=== PATIENT | male | born 1965 | race Caucasian/White ===

== ENCOUNTER 2025-02-23 08:57 | Outpatient (CLI) | payer BC, SELFPAY ==
--- OUTSIDE RECORDS SUMMARY | 2025-02-23 09:03 | XMS_ITS | Referral Summary ---
Author Organization [facility] ([place], [place], [place], [place], [place]) Address [address] [place] [address] Care Team Providers Care Market Development Director Name Role Phone Sabrina Conner MD Primary Care Provider [phone] Allergies No known active allergies Medications mycophenolate (CELLCEPT) 500 mg tablet Take 1 tablet (500 mg total) by mouth daily. 03/12/2023 Active predniSONE (DELTASONE) 5 MG tablet Take 1 tablet (5 mg total) by mouth daily. 03/06/2023 Active DIRECTOR OF REHABILITATION Thyroid 30 mg tablet Take 1 tablet (30 mg total) by mouth daily. 03/12/2023 Active spironolactone (ALDACTONE) 50 MG tablet once. 01/14/2023 Active Active Problems Problem Noted Date Diagnosed Date Other cirrhosis of liver 06/18/2024 Prostate asymmetry 06/18/2024 History of splenectomy 06/18/2024 Morbid obesity 06/18/2024 Gallstones 06/18/2024 On prednisone therapy 06/18/2024 Incarcerated incisional hernia 05/13/2024 Obstructive sleep apnea syndrome 07/24/2023 Hypothyroidism 05/22/2022 08/22/2023 Autoimmune hepatitis 10/13/2015 Overview (06/18/2024): Problem Code: K75.4; Problem Code Type: ICD-10; Social History Tobacco Use Types Packs/Day Years Used Date Smoking Tobacco: Never Smokeless Tobacco: Never Tobacco Cessation:Counseling Given: Not Answered Alcohol Use Standard Drinks/Week Comments Not Currently 0 (1 standard drink = 0.6 oz pur e alcohol) 1 drink every 2-3 months [facility] Intimate Partner Violence Answer Da te Recorded Within the last year, have y ou been afraid of your partner or ex-partner? No 06/18/2024 Within the last year, have y ou been humiliated or emotionally abused in other ways by your partner or ex-partner? No Within the last year, have y ou been kicked, hit, slapped, or otherwise physically hurt by your partner or ex-partner? No 06/18/2024 Within the last year, have y ou been raped or forced to have any kind of sexual activity by your partner or ex-partner? No 06/18/2024 Utilities Answer Date Recorded In the past 12 months, has t he electric, gas, oil, or water company threatened to shut off services in your home? No 06/25/2024 Interpersonal Safety Answer Date Record ed How often does anyone, keerthi hanson family and friends, physically hurt you? Never 06/25/2024 How often does anyone, keerthi hanson family and friends, insult or talk down to you? Never 06/25/2024 How often does anyone, keerthi hanson family and friends, threaten you with harm? Never 06/25/2024 How often does anyone, keerthi hanson family and friends, scream or curse at you? Never 06/25/2024 Housing Stability Answer Date Recorded What is your living situation today? I have a [facility] place to live 06/25/[address] you li ve. Do you have problems with any of the following? None of the above 06/25/2024 Food Insecurity Answer Date Recorded Within the past 12 months, y ou worried that your food would run out before you got money to buy more. Never true 06/25/2024 Within the past 12 months, t he food you bought just didn't last and you didn't have money to get more. Never true 06/25/2024 Transportation Needs Answer Date Record ed In the past 12 months, has l ack of reliable transportation kept you from medical appointments, meetings, work or from getting things needed for daily living? No 06/25/2024 Financial Resource Strain Answer Date R ecorded How hard is it for you to pa y for the very basics like food, housing, medical care, and heating? Would you say it is: Not hard at all 06/25/2024 Employment Answer Date Recorded Do you want help finding or keeping work or a job? I do not need or want help 06/25/2024 Family and Community Support Answer [place] e Recorded If for any reason you need h elp with day-to-day activities such as bathing, preparing meals, shopping, managing finances, etc., do you get the help you need? I don't need any help 06/25/2024 Feeling Lonely or Isolated 0 06/25 Educational Attainment Answer Date John rded Do you speak a language other than Macanese at [facility]? No 06/25/2024 Do you want help with school or training? For example, starting or completing job training or getting a high school diploma, GED or equivalent. No 06/25/2024 Physical Activity Answer Date Recorded Number of minutes of exercise per week 150 06/25/2024 Self Management Answer Date Recorded Because of a physical, menta l, or emotional condition, do you have serious difficulty concentrating, remembering, or making decisions? (5 years or older) No 06/25/2024 Because of a physical, menta l, or emotional condition, do you have difficulty doing errands alone such as visiting a doctor's office or shopping? (15 years or older) No 06/25/2024 Substance Use Answer Date Recorded How many times in the past y ear have you used prescription drugs for non-medical reasons? Never 06/25/2024 How many times in the past year have you used [place] legal drugs? Never 06/25/2024 Mental Health Answer Date Recorded Calculation of above two rows 0 Sex and Gender Information Value Date Recorded Sex Assigned at Not on file Legal Sex Male 5:33 PM CDT Gender Identity Not on file Sexual Orientation Not on file Last Filed Vital Signs Vital Sign Reading Time Taken Comments Blood Pressure 126/81 06/26/2024 12:50 AM EDT Pulse 84 06/26/2024 12:50 AM EDT Temperature 36.4 C (97.6 F) 06/26/2024 12:50 AM EDT Respiratory Rate 18 06/26/2024 12:50 AM EDT Oxygen Saturation 97% 06/26/2024 12:50 AM EDT Inhaled Oxygen Concentration - - Weight 131.1 kg (289 lb) 06/25/2024 1:58 PM EDT Height 185.4 cm (6' 1 ) 06/25/2024 1:58 PM EDT Body Mass Index 38.13 06/25/2024 1:58 PM EDT Plan of Treatment Upcoming Encounters Date Type Department Care Team (Late st Contact Info) Description 03/17/2025 10:15 AM EST Office Visit [facility] [address] [place] [address] Rosalee Pugh MD [address] [place] [address] Medical Devices Implanted Type Area Head Bookkeeper Device Identifier Shelf Expiration Date Model / Serial / Lot Mesh Vntrlght Cir Echo 2 15cm [id number] - [id number] Implanted:Qty : 1 on 06/25/2024 by David Mccord MD at [facility] IMPLANTS N/A: Abdomen CR BARD:DAVOL 10/22/2025 [id number] / / [id number] Insurance BLUE CROSS/BLUE SHIELD Advance Directives For more information, please contact: [phone] * Full Code (Latest Code Status on File) Date Activated Date Inactivated Comments 06/25/2024 10:39 AM 06/26/2024 2:02 PM If no pulse: No intervention If has pulse: Use intubation, mechanical ventilation, defibrillation, ACLS medications, or cardioversion as indicated. Call ABALONE SHELLER * Full Code Date Activated Date Inactivated Comments 06/25/2024 6:58 AM 06/25/2024 10:39 AM Care Teams Market Development Director Relationship Specialty Start Date End Date Sabrina Conner MD [address] [place] [id number] PCP - General Internal Medicine 03/28/23
--- OUTSIDE RECORDS SUMMARY | 2025-02-23 09:03 | XMS_ITS | Clinical Summary ---
Author Organization [facility] ([place], [place], [place], [place], [place]) Address [address] [place] [address] Care Team Providers Care Program Admin Name Role Phone Sabrina Conner MD Primary Care Provider [phone] Allergies No known active allergies Medications mycophenolate (CELLCEPT) 500 mg tablet Take 1 tablet (500 mg total) by mouth daily. 03/12/2023 Active predniSONE (DELTASONE) 5 MG tablet Take 1 tablet (5 mg total) by mouth daily. 03/06/2023 Active DEVELOPMENT TECHNOLOGIST Thyroid 30 mg tablet Take 1 tablet [...] Problem Code: K75.4; Problem Code Type: ICD-10; Family History Medical History Relation Name Comments Seizures Brother Diabetes Father Deyvi Unremarkable Father Deyvi Heart disease Mother Relation Name Status Comments Brother Father Deyvi Mother Social History Tobacco Use Types Packs/Day Years [...] your living situation today? I have a [facility] place to live 06/25/2024 Think about [...] Isolated 0 06/25 Educational Attainment Answer Date Jhon rded Do you speak a language other than Egyptian at [facility]? No 06/25/2024 Do you want help with [...] Description 03/17/2025 10:15 AM EST Office Visit [facility] [address] [place] [address] Rosalee Pugh MD [address] [place] [address] Health Maintenance Due Date Last Done Comments CT Colonography 1967 Colonoscopy 1967 Colorectal Cancer Screening 1967 FOBT/FIT 1967 Fit-DNA (Cologuard) 1967 Sigmoidoscopy 1967 HIV Screening 1982 Hepatitis C Screening 1985 Pneumococcal 50+ years (1 of 2 - PCV) 1986 Shingles Vaccine (Zoster) (1 of 2) 1986 Lipid Panel 2002 DTAP/TDAP/TD VACCINES (2 - T d or Tdap) 08/25/2023 08/24/2013 COVID-19 VACCINE (2024-2 6 season) 2024 02/05/2021, 05/17/2020, 04/19/2020 Influenza Vaccine (#1) 2024 , 12/04/2017, 11/07/2016, Additional history exists Depression Screening (12+) 06/18/2025 06/18/2024 Tobacco Cessation Counseling and Screening (12+) 07/09/2025 07/09/2024 Medical Devices Implanted Type Area Golf Player Assistant Device Identifier Shelf Expiration Date Model / Serial / Lot Mesh Vntrlght Cir Echo 2 15cm [id number] - [id number] Implanted:Qty : 1 on 06/25/2024 by David Mccord MD at [facility] IMPLANTS N/A: Abdomen CR BARD:DAVOL 10/22/2025 [id number] / / [id number] Insurance BLUE CROSS/BLUE SHIELD Advance Directives For more information, please contact: [phone] * Full Code (Latest Code Status on File) Date Activated Date Inactivated Comments 06/25/2024 10:39 AM 06/26/2024 2:02 PM If no pulse: No intervention If has pulse: Use intubation, mechanical ventilation, defibrillation, ACLS medications, or cardioversion as indicated. Call MIXER CRANE OPERATOR * Full Code Date Activated Date Inactivated Comments 06/25/2024 6:58 AM 06/25/2024 10:39 AM Care Teams Program Admin Relationship Specialty Start Date End Date Sabrina Conner MD [address] [place] [address] PCP - General Internal Medicine 03/28/23
--- OUTSIDE RECORDS SUMMARY | 2025-02-23 09:04 | XMS_ITS | Encounter Summary ---
Author Organization Healthcare Address [address] [place] [address] Care Team Providers Care Salesforce Consultant Name Role Phone Celestine Garner MD Primary Care Provider + [phone] Encounter Details Date Type Department Care Team (Late st Contact Info) Description 01/10/2016 [facility] Encounter Historical OTTR [address] [place] [address] Provider, Barbra [address] [place] [address] Social History Tobacco Use Types Packs/Day Years Used Date Smoking Tobacco: Never Assessed Sex and Gender Information Value Date Recorded Sex Assigned at Not on file Legal Sex Male 7:45 PM EDT Gender Identity Not on file Sexual Orientation Not on file documented as of this encounter Miscellaneous Notes * Progress Notes - Barbra Don MD - 01/10/2016 7:14 AM EST Status update faxed to [facility] transplant per their request. * Progress Notes - Barbra Don MD - 10/20/2015 7:44 AM EDT Update faxed to [facility] transplant per their request. * Progress Notes - Josefa Schwartz - 10/10/2015 7:55 AM EDT contacted pt who stated he would like to place his eval on hold at this time. Pt scheduled to see new internal medicine doc, Nicolle Conner PCP. Pt stated his current MELD was 12 but still wanted to wait on eval. Pt to contact me once regarding RTC * Progress Notes - Miguel May - 08/31/2015 9:49 PM EDT Patient called to discuss Eval dates. 09/08 and 09/22 will not work. He asked that it be moved to midto late September with one Saturday then 2 weeks later second day, however he is not avail last week of September. Seemed conflicted with confirming a date and kept telling me that it was his issue bc he wasunhappy with [facility]. His children are not fully aware and he prefers to have them back in school (college and [employer]). Asked him what we could do to help him and he said it was his issue. * Progress Notes - Miguel May - 08/30/2015 8:41 PM EDT Spoke to patient regarding Eval dates of 09/08 and 09/22. He requested I email those dates to him andhe will call me and/or email response by 08/30. He verbalized understanding. * Progress Notes - Barbra Don MD - 07/13/2015 10:04 AM EDT Status update faxed to [facility] transplant per their request. * Progress Notes - Jorge Munoz - 07/04/2015 2:28 PM EDT Start evaluation for liver transplant. * Progress Notes - Emily Kevin - 06/23/2015 1:05 PM EDT Spoke to mr Parker - moved consult with MBS to 06/28 at 1pm. * Progress Notes - Emily Kevin - 06/23/2015 12:07 PM EDT Called Mr Parker to reschedule consult with MBS due to pending transplant - no answer, left voicemail message. * Progress Notes - Emily Kevin - 06/15/2015 9:06 AM EDT Mailed appointment letter [facility] priority: [phone]. * Progress Notes - Emily Kevin - 06/14/2015 3:13 PM EDT Per MBS - contact Mr Parker and schedule consult with MBS. Scheduled for 06/23 at 8:20am - consult only/no labs (he is having labs drawn for Dr Rees 06/19). * Progress Notes - Emily Kevin - 06/14/2015 10:40 AM EDT Received records from Dr José Miguel Rees - saved in [employer]. * Progress Notes - Josefa Schwatrz - 04/20/2015 10:12 AM EST spoke with pt regarding need for eval finally. Pt now seeing José Miguel Rees and wants to continue care with him. States the he is not happy with communication between Dr. Evans and transplant physicians. Pt stated he can not tolerte Imuran and Dr Evans office did blood test to prove it yet never sent info to us and we proceed with starting him on the medicine. Pt believes Imuran made him worse and therefore now that he is off Imuran that he is improving. Denied EGD with us but will pursue with Dr. Rees. I explained to pt that we did not have all the necessary information at time of his ICEbut have since seen biopsy and determined he does have cirrhosis - H/H dropping, INR elevated and bilirubin elevated -MELD 16. Pt states that is all from Imuran and is improving now that has been dc'd. Pt not interested in completing eval and will follow with [facility]. I explained that I felt comfortable he would be back to see us and he agreed that if things did not improve further he would contact me. * Progress Notes - Barbra Don MD - 04/13/2015 8:03 AM EST Received authorization for liver eval from [facility], auth [id number]. * Progress Notes - Barbra Don MD - 04/12/2015 8:54 AM EST Faxed [facility] transplant for benefits and eval approval. * Progress Notes - Josefa Schwartz - 04/05/2015 10:11 AM EST pt having difficulities with Imuran and unable to tolerate. Per AG - stop Imuran. RTC for discussion of MMF. Pt appt changed from 05/05 to 04/08 at 940. Orders updated in [facility]. Pt notified * Progress Notes - Josefa Schwartz - 03/28/2015 10:01 AM EST labs received from 03/25. AG notified * Progress Notes - Josefa Schwartz - 03/11/2015 9:50 AM EST medical records release faxed to [facility] for biopsy slides. * Progress Notes - Emily Kevin - 03/11/2015 9:50 AM EST Faxed request to [facility] ([phone] fax) attn:Frances for pathology slides. * Progress Notes - Josefa Schwartz - 03/08/2015 12:54 PM EST pt had local labs this am. Results in OTTR. AG notified documented in this encounter Plan of Treatment Not on file documented as of this encounter Procedures Procedure Name Priority Date/Time Associated Diagnosis Comments OTTR LAB RESULTS (MANUAL) Routine 06/23/2015 11:31 AM EDT OTTR LAB RESULTS (MANUAL) Routine 06/02/2015 10:39 AM EDT OTTR LAB RESULTS (MANUAL) Routine 04/08/2015 10:02 AM EST OTTR LAB RESULTS (MANUAL) Routine 03/25/2015 9:59 AM EST OTTR LAB RESULTS (MANUAL) Routine 03/08/2015 12:51 PM EST OTTR LAB RESULTS (MANUAL) Routine 02/11/2015 7:24 AM EST documented in this encounter Results * OTTR LAB RESULTS (MANUAL) (06/23/2015 11:31 AM EDT) External WBC 8.3 k/uL EXTERNAL LAB External Hemoglobin (Hgb) 15.7 gm/dL EXTERNAL LAB External Hematocrit (Hct) 45.4 % EXTERNAL LAB External Platelet Count (Plt) 84 k/uL EXTERNAL LAB External Prothrombin Time (PT) 12.7 seconds EXTERNAL LAB External INR - Internormal Ratio 1.3 EXTERNAL LAB External Glucose 128 mg/dL EXTERNAL LAB External BUN 21 mg/dL EXTERNAL LAB External Creatinine Blood 1.18 mg/dL EXTERNAL LAB External Sodium (Na) 139 mmol/L EXTERNAL LAB External Potassium (K) 5.1 mmol/L EXTERNAL LAB External Chloride (Cl) 102 mmol/L EXTERNAL LAB External Carbon Dioxide (CO2) 25 mmol/L EXTERNAL LAB External Calcium (Ca) 9.4 mg/dL EXTERNAL LAB External AST (SGOT) 34 units/L EXTERNAL LAB External ALT (SGPT) 46 units/L EXTERNAL LAB External Alkaline Phosphatase 88 U/L EXTERNAL LAB External Bilirubin Total 2.1 mg/dL EXTERNAL LAB External Total Protein 6.3 g/dL EXTERNAL LAB External Albumin 3.1 g/dL EXTERNAL LAB External Estimated GFR 70.03 EXTERNAL LAB 06/23/2015 11:3 1 AM EDT Narrative EXTERNAL LAB - 06/29/2015 11:33 AM EDT [facility] us Historical Provider LAB BLOOD ORDERABLES Final R esult EXTERNAL LAB * OTTR LAB RESULTS (MANUAL) (06/02/2015 10:39 AM EDT) External Glucose 171 mg/dL EXTERNAL LAB External BUN 21 mg/dL EXTERNAL LAB External Creatinine Blood 1.15 mg/dL EXTERNAL LAB External Sodium (Na) 140 mmol/L EXTERNAL LAB External Potassium (K) 4.7 mmol/L EXTERNAL LAB External Chloride (Cl) 107 mmol/L EXTERNAL LAB External Carbon Dioxide (CO2) 26 mmol/L EXTERNAL LAB External Calcium (Ca) 8.9 mg/dL EXTERNAL LAB External AST (SGOT) 40 units/L EXTERNAL LAB External ALT (SGPT) 63 units/L EXTERNAL LAB External Alkaline Phosphatase 106 U/L EXTERNAL LAB External Bilirubin Total 4.0 mg/dL EXTERNAL LAB External Total Protein 6.5 g/dL EXTERNAL LAB External Albumin 2.6 g/dL EXTERNAL LAB External Prothrombin Time (PT) 13.0 seconds EXTERNAL LAB External INR - Internormal Ratio 1.2 EXTERNAL LAB External Estimated GFR 72.14 EXTERNAL LAB 06/02/2015 10:3 9 AM EDT Narrative EXTERNAL LAB - 06/14/2015 10:40 AM EDT [facility] us Historical Provider LAB BLOOD ORDERABLES Final R esult EXTERNAL LAB * OTTR LAB RESULTS (MANUAL) (04/08/2015 10:02 AM EST) External Estimated GFR 116.35 EXTERNAL LAB 04/08/2015 10:0 2 AM EST Narrative EXTERNAL LAB - 04/08/2015 11:10 AM EST Automated LAB Interface us Historical Provider LAB BLOOD ORDERABLES Final R esult EXTERNAL LAB * OTTR LAB RESULTS (MANUAL) (03/25/2015 9:59 AM EST) External WBC 4.1 k/uL EXTERNAL LAB External Hemoglobin (Hgb) 13.4 gm/dL EXTERNAL LAB External Hemoglobin A1c 39.3 % EXTERNAL LAB External Hematocrit (Hct) 143 % EXTERNAL LAB External Prothrombin Time (PT) 13.3 seconds EXTERNAL LAB External INR - Internormal Ratio 1.2 EXTERNAL LAB External Glucose 212 mg/dL EXTERNAL LAB External BUN 17 mg/dL EXTERNAL LAB External Creatinine Blood 0.7 mg/dL EXTERNAL LAB External Sodium (Na) 139 mmol/L EXTERNAL LAB External Potassium (K) 4.3 mmol/L EXTERNAL LAB External Chloride (Cl) 106 mmol/L EXTERNAL LAB External Carbon Dioxide (CO2) 28 mmol/L EXTERNAL LAB External Calcium (Ca) 9.0 mg/dL EXTERNAL LAB External AST (SGOT) 41 units/L EXTERNAL LAB External ALT (SGPT) 43 units/L EXTERNAL LAB External Alkaline Phosphatase 85 U/L EXTERNAL LAB External Bilirubin Total 3.1 mg/dL EXTERNAL LAB External Total Protein 6.8 g/dL EXTERNAL LAB External Albumin 2.9 g/dL EXTERNAL LAB External Estimated GFR 127.93 EXTERNAL LAB 03/25/2015 9:59 AM EST Narrative EXTERNAL LAB - 03/28/2015 10:00 AM EST [facility] us Historical Provider LAB BLOOD ORDERABLES Final R esult EXTERNAL LAB * OTTR LAB RESULTS (MANUAL) (03/08/2015 12:51 PM EST) External WBC 12.5 k/uL EXTERNAL LAB External Hemoglobin (Hgb) 14.8 gm/dL EXTERNAL LAB External Hematocrit (Hct) 42.9 % EXTERNAL LAB External Platelet Count (Plt) 133 k/uL EXTERNAL LAB External Prothrombin Time (PT) 12.1 seconds EXTERNAL LAB External INR - Internormal Ratio 1.1 EXTERNAL LAB External Glucose 85 mg/dL EXTERNAL LAB External BUN 18 mg/dL EXTERNAL LAB External Creatinine Blood 0.8 mg/dL EXTERNAL LAB External Sodium (Na) 142 mmol/L EXTERNAL LAB External Potassium (K) 3.4 mmol/L EXTERNAL LAB External Chloride (Cl) 109 mmol/L EXTERNAL LAB External Carbon Dioxide (CO2) 25 mmol/L EXTERNAL LAB External Calcium (Ca) 9.0 mg/dL EXTERNAL LAB External AST (SGOT) 42 units/L EXTERNAL LAB External ALT (SGPT) 49 units/L EXTERNAL LAB External Alkaline Phosphatase 63 U/L EXTERNAL LAB External Bilirubin Total 2.4 mg/dL EXTERNAL LAB External Total Protein 7.1 g/dL EXTERNAL LAB External Albumin 2.9 g/dL EXTERNAL LAB External Estimated GFR 109.66 EXTERNAL LAB 03/08/2015 12:5 1 PM EST Narrative EXTERNAL LAB - 03/08/2015 12:53 PM EST [facility] Historical Provider LAB BLOOD ORDERABLES Final R esult Performing Organization Address City/[facility]/ZIP Co de Phone Number EXTERNAL LAB * OTTR LAB RESULTS (MANUAL) (02/11/2015 7:24 AM EST) External Estimated GFR 125.85 EXTERNAL LAB 02/11/2015 7:24 AM EST Narrative EXTERNAL LAB - 02/11/2015 9:35 AM EST Automated LAB Interface Historical Provider LAB BLOOD ORDERABLES Final R esult EXTERNAL LAB documented in this encounter Visit Diagnoses Not on filedocumented in this encounter Care Teams Salesforce Consultant Relationship Specialty [place] [id number] PCP - General 07/08/20 documented as of this encounter
--- OUTSIDE RECORDS SUMMARY | 2025-02-23 09:04 | XMS_ITS | Encounter Summary ---
Author Organization Healthcare Address [address] [place] [address] Care Team Providers Care Stockroom Attendant Name Role Phone Celestine Garner MD Primary Care Provider + [phone] Encounter Details Date Type Department Care Team (Late st Contact Info) Description 04/11/2015 [facility] OT[facility] Committee Historical OTTR [address] [place] [address] Amelia Garcia RN CH-TRANSPLANT ADMINISTRATION None Social History Tobacco Use Types Packs/Day Years Used Date Smoking Tobacco: Never Assessed Sex and Gender Information Value Date Recorded Sex Assigned at Not on file Legal Sex Male 7:45 PM EDT Gender Identity Not on file Sexual Orientation Not on file documented as of this encounter Miscellaneous Notes * Progress Notes - Amelia Garcia - 04/11/2015 1:55 PM EST Start standard eval. * Progress Notes - Emili Washburn - 04/08/2015 12:22 PM EST 49-year-old with AIH/cirrhosis meld 11 Patient here for follow-up. Intolerant to Imuran, persistent intractable nausea, Imuran discontinued. Has been on prednisone 15 mg a day. LFTs improved, increase in bilirubin to 4.5. Patient also reports fluid retention in lower extremities, weight up 10 pounds since the last appointment. Drop in hemoglobin and hematocrit noticed, hemoglobin 10.6 down from 15 last visit. No signs of GI bleed. Schedule EGD with Dr. Evans. Abdomineal US q 6 months, last in 11/09. Obtain report of thyroid US done locally. Start Nadolol 20 mg/day. Start Spironolactone 25 mg day. Increase prednisone to 20 mg/day. CBC, CMP, IgG [id number]. Return in 6 weeks. * Progress Notes - Emili Washburn - 03/11/2015 9:14 AM EST 49 YO with AIH MELD 11 Laboratory workup significant for positive IRWIN dilution 1:1280, positive smooth muscle antibody 1: 40, negative antimitochondrial antibody. IGG elevated at 2000. Started on AZA 100mg/day and continued on Prednisone 20 mg/day on 03/14/14 LFTs improved: AST 49 down from 102, ALT 49 down from 116, Bili 2.4 up from 1.1 Platelet count 133 down from 184 Patient with h/o splenomegaly ?underlying advanced fibrosis Liver biopsy slides requested, need report today Continue AZA Prednisone down to 15 mg/day Labs q2 weeks: CBC, CMP, IgG return in 8 weeks documented in this encounter Plan of Treatment Not on file documented as of this encounter Visit Diagnoses Not on filedocumented in this encounter Care Teams Stockroom Attendant Relationship Specialty Start [place] [id number] PCP - General 07/08/20 documented as of this encounter
--- OUTSIDE RECORDS SUMMARY | 2025-02-23 09:04 | XMS_ITS | Clinical Summary ---
Author Organization [facility] Address [address] [place] [address] Care Team Providers Care Retail Field Representative Name Role Phone Sabrina Conner MD Primary Care Provider Social History Tobacco Use Types Packs/Day Years Used Date Smoking Tobacco: Never Assessed Abuse Screen Answer Date Recorded Unsafe at Home or Work/School Not on file Feels Threatened by Someone? Not on file 10/2022 Does Anyone Keep You from Co ntacting Others or Doint Things Outside the Home? Not on file 12/03/2022 Physical Sign of Abuse Present Not on file 1 Housing Stability Answer Date Recorded Current Living Arrangements Not on file 10/2022 Potentially Unsafe Housing Conditions Not on ml e 12/03/2022 Family and Community Support Answer [place] e Recorded Help with Day-to-Day Activities Not on file 12/03/2022 Lonely or Isolated Not on file 12/03/2022 Employment Answer Date Recorded Do you want help finding or keeping work or a makayla b? Not on file 12/03/2022 Disabilities Answer Date Recorded Concentrating, Remembering, or Making Decisions Difficulty Not on file 12/03/2022 Doing Errands Independently Difficulty Not on fi le 12/03/2022 Education Answer Date Recorded Help with school or training? Not on file Preferred Language Not on file 12/03/2022 Sex and Gender Information Value Date Recorded Sex Assigned at Not on file Legal Sex Male 11:11 AM EDT Gender Identity Not on file Sexual Orientation Not on file Plan of Treatment Health Maintenance Due Date Last Done Comments ANNUAL PHYSICAL 1967 HEPATITIS C SCREENING 1967 TDAP/TD VACCINES (1 - Tdap) 1986 COLOGUARD 2012 COLON CANCER SCREENING 5 YEA R SIGMOIDOSCOPY 2012 COLONOSCOPY [address] CANCER SCREENING 2012 CT COLONOGRAPHY 2012 FECAL OCCULT BLOOD TEST 2012 FIT Testing (1 year) 2012 Pneumococcal Vaccine 50+ (1 of 1 - PCV) 2017 ZOSTER VACCINE (1 of 2) 2017 INFLUENZA VACCINE 09/25/2024 02/03/2020, , 11/07/2016, Additional history exists Insurance [place] [address] PPO Care Teams Retail Field Representative Relationship Specialty Start Date End Date Sabrina Conner MD [address] [place] [id number] PCP - General Internal Medicine 05/28/22
--- OUTSIDE RECORDS SUMMARY | 2025-02-23 09:04 | XMS_ITS | Clinical Summary ---
Author Organization [facility] Address [address] [place] [address] Care Team Providers Care Lathe Puller Name Role Phone Celestine Garner MD Primary Care Provider [phone] Social History Tobacco Use Types Packs/Day Years Used Date Smoking Tobacco: Never Assessed Sex and Gender Information Value Date Recorded Sex Assigned at Not on file Legal Sex Male 7:45 PM EDT Gender Identity Not on file Sexual Orientation Not on file Plan of Treatment Not on file Care Teams Lathe Puller Relationship Specialty [place] [id number] PCP - General 07/08/20
--- OUTSIDE RECORDS SUMMARY | 2025-02-23 09:04 | XMS_ITS | Data Portability ---
Author Organization [place] - [facility], [employer] Address [address] [facility] [address] [place] [address] Assessment No assessment recorded. Plan of Treatment Reminders Order Date Submit Date Provider Last Modified By Organization Details Last Modified Time Details Appointments Any 2025 09:30A M Sabrina Conner MD Not available Not available Not available Lab CBC w/ auto diff 2024 026 [email or web address] [facility], [address] [place] [address], [address], 08/20/2024 10:14:33 PT/PTT, plasma 2024 026 [facility], [address] [place] [address], [address], 08/20/2024 10:14:32 CMP, serum or plasma 2024 026 [email or web address] [id number] [facility], [address] [place] [address], [address], 12/09/2024 03:25:16 ammonia, QN, plasma 2024 026 [email or web address] [facility], [address] [place] [address], [address], 08/20/2024 10:14:32 TSH + free T4, serum 2024 026 [email or web address] [facility], [address] [place] [address], [address], 08/20/2024 10:14:32 CBC w/ auto diff 2023 025 DOMINIC [facility], [address], [place], [address], 08/20/2024 14:11:17 PT/PTT, plasma 2023 025 DOMINIC [facility], [address], [place], [address], 08/20/2024 14:11:18 CMP, serum or plasma 2023 025 DOMINIC [facility], [address], [place], [address], 08/20/2024 14:11:18 ammonia, QN, plasma 2023 025 DOMINIC [facility], [address], [place], [address], 08/20/2024 14:11:19 TSH + free T4, serum 2023 025 DOMINIC [facility], [address], [place], [address], 08/20/2024 14:11:16 CBC w/ auto diff 2023 024 DOMINIC [facility], [address] [place], [address], 01/28/2024 11:12:11 PT/PTT, plasma 2023 024 DOMINIC [facility], [address] [place], [address], 01/28/2024 11:12:12 CMP, serum or plasma 2023 024 DOMINIC [facility], [address], [place], [address], 01/28/2024 11:12:12 ammonia, QN, plasma 2023 024 DOMINIC [facility], [address], [place], [address], 01/28/2024 11:12:13 TSH + free T4, serum 2023 024 DOMINIC [facility], [address] [place], [address], 01/28/2024 11:12:11 CBC w/ auto diff 2022 024 [email or web address] [facility], [place], [address], 07/24/2023 09:30:54 CMP, serum or plasma 2022 024 [facility], [place], [address], 07/24/2023 09:31:03 PT/PTT, plasma 2022 024 [email or web address] [facility], [place], [address], 07/24/2023 09:31:10 ammonia, QN, plasma 2022 024 [email or web address] [facility], [place], [address], 07/24/2023 09:31:25 TSH + free T4, serum 2022 024 [email or web address] [facility], [address] [place], [address], 07/24/2023 09:31:31 CBC w/ auto diff 2022 023 DOMINIC [facility], [address] [place], [address], 12/19/2022 12:12:33 CMP, serum or plasma 2022 023 DOMINIC [facility], [address] [place], [address], 12/19/2022 12:12:34 ammonia, QN, plasma 2022 023 DOMINIC [facility], [address] [place], [address], 12/19/2022 12:12:35 PT/PTT, plasma 2022 023 DOMIINC [facility], [address] [facility], [place], [address], 12/19/2022 12:12:35 TSH + free T4, serum 2022 023 [email or web address] [facility], [address] [facility], [place], [address], 05/30/2022 10:27:48 Referral general surgeon referral - Please call the patient to schedule. 2023 024 [email or web address] David Mccord MD, [address], [facility] [address], [place], [address], 08/05/2023 11:58:40 Procedures None recorded. Surgeries None recorded. Imaging None recorded. Medication Orders Zepbound 2.5 mg/0.5 mL subcutane ous solution 2024 025 [place] [employer] [facility], [address], [place], [place], [id number], 08/20/2024 10:15:09 ACQUISITION SPECIALIST Thyroid 30 mg tablet 2022 023 [place] [facility], [address] [facility], [place], [address], 12/27/2022 08:25:03 Patient TargetsNo targets recorded. Patient Instructions Encounter Date Encounter Id Patient Instructions Last Modified By Organization Details Last Modified Time 12/25/2022 [id number] autoimmune hepatitis: care instructions Not available 12/25/2022 10:35:15 thyroidectomy: before your surgery [email or web address] Not available 12/25/2022 10:35:15 07/24/2023 [id number] autoimmune hepatitis: care instructions [email or web address] Not available 07/24/2023 15:40:55 sleep apnea: car e instructions [email or web address] Not available 07/24/2023 15:40:55 hernia: care instructions [email or web address] Not available 07/24/2023 15:40:56 thyroidectomy: before your surgery Not available 07/24/2023 15:40:55 hypothyroidism: care instructions [email or web address] Not available 07/24/2023 15:40:55 01/29/2024 [id number] influenza (flu) vaccine: care instructions Not available 01/29/2024 15:17:22 autoimmune hepatitis: care instructions [id number] Not available 01/29/2024 15:17:22 sleep apnea: car e instructions [email or web address] Not available 01/29/2024 15:17:22 thyroidectomy: before your surgery [email or web address] Not available 01/29/2024 15:17:22 hypothyroidism: care instructions [email or web address] Not available 01/29/2024 15:17:22 08/20/2024 [id number] autoimmune hepatitis: care instructions [email or web address] Not available 08/20/2024 10:14:32 When You Want to Lose Weight: Care Instructions Not available 08/20/2024 10:14:32 sleep apnea: car e instructions [email or web address] Not available 08/20/2024 10:14:32 thyroidectomy: before your surgery [email or web address] Not available 08/20/2024 10:14:32 hernia: care instructions Not available 08/20/2024 10:14:33 hypothyroidism: care instructions [email or web address] Not available 08/20/2024 10:14:32 Reason for Referral General Surgeon Referral for Ventral incisional hernia Please call the patient to schedule. Referring Physician: Sabrina Conner, Internal Medicine, Encounter Date: 07/24/2023 Results Created Date Observation Date Name Description Value Unit Range Abnormal Flag Note LastModifiedBy Organization Detail LastModifiedTime 05/19/1905/19/2022 CBC WITH DIFFE RENTI AL/PL ATELE T WBC 11.3 x10e3 /uL 3.4-10 .8 above high normal Not Available [facility] ([facility]) [address] [facility], [place], [address], 05/20/2022 06:42:38 05/19/19 23 05/19/2022 CBC WITH DIFFE RENTI AL/PL ATELE T RBC 5.54 x10e6 /uL 4.14-5 .80 Not Available [facility] ([facility]) [address] [place], [address], 05/20/2022 06:42:38 05/19/19 23 05/19/2022 CBC WITH DIFFE RENTI AL/PL ATELE T hemoglobin 16.5 g/dL 13.0-1 7.7 Not Available [facility] ([facility]) [address] [place], [address], 05/20/2022 06:42:38 05/19/1905/19/2022 CBC WITH DIFFE RENTI AL/PL ATELE T hematocrit 48.3 % 37.5-5 1.0 Not Available [facility] ([facility]) [address] [place], [address], 05/20/2022 06:42:38 05/19/19 23 05/19/2022 CBC WITH DIFFE RENTI AL/PL ATELE T MCV 87 fL 79-97 Not Available [facility] ([facility]) [address] [place], [address], 05/20/2022 06:42:38 05/19/1905/19/2022 CBC WITH DIFFE RENTI AL/PL ATELE T MCH 29.8 pg 26.6-3 3.0 Not Available [facility] ([facility]) [address] [place], [address], 05/20/2022 06:42:38 05/19/19 23 05/19/2022 CBC WITH DIFFE RENTI AL/PL ATELE T MCHC 34.2 g/dL 31.5-3 5.7 Not Available [facility] ([facility]) [address] [place], [address], 05/20/2022 06:42:38 05/19/19 23 05/19/2022 CBC WITH DIFFE RENTI AL/PL ATELE T RDW 14.4 % 11.6-1 5.4 Not Available [facility] ([facility]) [address] [place], [address], 05/20/2022 06:42:38 05/19/19 23 05/19/2022 CBC WITH DIFFE RENTI AL/PL ATELE T platelets 248 x10e3 /uL 150-45 0 Not Available [facility] ([facility]) [address] [facility], [place], [address], 05/20/2022 06:42:38 05/19/19 23 05/19/2022 CBC WITH DIFFE RENTI AL/PL ATELE T neutrophils 40 % not estab. Not Available [facility] ([facility]) [address] [place], [address], 05/20/2022 06:42:38 05/19/19 23 05/19/2022 CBC WITH DIFFE RENTI AL/PL ATELE T lymphs 48 % not estab. Not Available [facility] ([facility]) [address] [place], [address], 05/20/2022 06:42:38 05/19/19 23 05/19/2022 CBC WITH DIFFE RENTI AL/PL ATELE T monocytes 9 % not estab. Not Available [facility] ([facility]) [address] [place], [address], 05/20/2022 06:42:38 05/19/19 23 05/19/2022 CBC WITH DIFFE RENTI AL/PL ATELE T eos 2 % not estab. Not Available [facility] ([facility]) [address] [place], [address], 05/20/2022 06:42:38 05/19/19 23 05/19/2022 CBC WITH DIFFE RENTI AL/PL ATELE T basos 1 % not estab. Not Available [facility] ([facility]) [address] [place], [address], 05/20/2022 06:42:38 05/19/19 23 05/19/2022 CBC WITH DIFFE RENTI AL/PL ATELE T immature cells ACQUISITION SPECIALIST Not Available [facility] ([facility]) [address] [place], [address], 05/20/2022 06:42:38 05/19/19 23 05/19/2022 CBC WITH DIFFE RENTI AL/PL ATELE T neutrophils (absolute) 4.5 x10e3 /uL 1.4-7. 0 Not Available [facility] ([facility]) [address] [place], [address], 05/20/2022 06:42:38 05/19/19 23 05/19/2022 CBC WITH DIFFE RENTI AL/PL ATELE T lymphs (absolute) 5.5 x10e3 /uL 0.7-3. 1 above high normal Not Available [facility] ([facility]) [address] [place], [address], 05/20/2022 06:42:38 05/19/19 23 05/19/2022 CBC WITH DIFFE RENTI AL/PL ATELE T monocytes(ab solute) 1.1 x10e3 /uL 0.1-0. 9 above high normal Not Available [facility] ([facility]) [address] [place], [address], 05/20/2022 06:42:38 05/19/19 23 05/19/2022 CBC WITH DIFFE RENTI AL/PL ATELE T eos (absolute) 0.2 x10e3 /uL 0.0-0. 4 Not Available [facility] ([facility]) [address] [place], [address], 05/20/2022 06:42:38 05/19/19 23 05/19/2022 CBC WITH DIFFE RENTI AL/PL ATELE T baso (absolute) 0.1 x10e3 /uL 0.0-0. 2 Not Available [facility] ([facility]) [address] [facility], [place], [address], 05/20/2022 06:42:38 05/19/19 23 05/19/2022 CBC WITH DIFFE RENTI AL/PL ATELE T immature granulocytes 0 % not estab. Not Available [facility] ([facility]) [address] [facility], [place], [address], 05/20/2022 06:42:38 05/19/19 23 05/19/2022 CBC WITH DIFFE RENTI AL/PL ATELE T immature grans (abs) 0.0 x10e3 /uL 0.0-0. 1 Not Available [facility] ([facility]) [address] [facility], [place], [address], 05/20/2022 06:42:38 05/19/19 23 05/19/2022 CBC WITH DIFFE RENTI AL/PL ATELE T NRBC ACQUISITION SPECIALIST Not Available [facility] ([facility]) [address] [facility], [place], [address], 05/20/2022 06:42:38 05/19/19 23 05/19/2022 CBC WITH DIFFE RENTI AL/PL ATELE T hematology comments: ACQUISITION SPECIALIST Not Available [facility] ([facility]) [address] [facility], [place], [address], 05/20/2022 06:42:38 05/19/19 23 05/19/2022 COMP. METAB OLIC PANEL (14) glucose 84 mg/dL 70-99 Not Available [facility] ([facility]) [address] [place], [address], 05/20/2022 06:42:39 05/19/19 23 05/19/2022 COMP. METAB OLIC PANEL (14) BUN 18 mg/dL 6-24 Not Available [facility] ([facility]) [address] [place], [address], 05/20/2022 06:42:39 05/19/19 23 05/19/2022 COMP. METAB OLIC PANEL (14) creatinine 0.93 mg/dL 0.76-1 .27 Not Available [facility] ([facility]) [address] [facility] [place], [address], 05/20/2022 06:42:39 05/19/19 23 05/19/2022 COMP. METAB OLIC PANEL (14) eGFR 97 mL/mi n/1.7 3 >59 Not Available [facility] ([facility]) [address] [facility] [place], [address], 05/20/2022 06:42:39 05/19/19 23 05/19/2022 COMP. METAB OLIC PANEL (14) BUN/creatini ne ratio 19 9-20 Not Available [facility] ([facility]) [address] [facility], [place], [address], 05/20/2022 06:42:39 05/19/19 23 05/19/2022 COMP. METAB OLIC PANEL (14) sodium 143 mmol/ L 134-14 4 Not Available [facility] ([facility]) [address] [facility], [place], [address], 05/20/2022 06:42:39 05/19/19 23 05/19/2022 COMP. METAB OLIC PANEL (14) potassium 5.1 mmol/ L 3.5-5. 2 Not Available [facility] ([facility]) [address] [facility] [place], [address], 05/20/2022 06:42:39 05/19/19 23 05/19/2022 COMP. METAB OLIC PANEL (14) chloride 106 mmol/ L 96-106 Not Available [facility] ([facility]) [address] [place], [address], 05/20/2022 06:42:39 05/19/19 23 05/19/2022 COMP. METAB OLIC PANEL (14) carbon dioxide, total 23 mmol/ L 20-29 Not Available [facility] ([facility]) [address] [place], [address], 05/20/2022 06:42:39 05/19/19 23 05/19/2022 COMP. METAB OLIC PANEL (14) calcium 9.6 mg/dL 8.7-10 .2 Not Available [facility] ([facility]) [address] [place], [address], 05/20/2022 06:42:39 05/19/19 23 05/19/2022 COMP. METAB OLIC PANEL (14) protein, total 6.6 g/dL 6.0-8. 5 Not Available [facility] ([facility]) [address] [place], [address], 05/20/2022 06:42:39 05/19/19 23 05/19/2022 COMP. METAB OLIC PANEL (14) albumin 3.8 g/dL 3.8-4. 9 Not Available [facility] ([facility]) [address] [place], [address], 05/20/2022 06:42:39 05/19/19 23 05/19/2022 COMP. METAB OLIC PANEL (14) globulin, total 2.8 g/dL 1.5-4. 5 Not Available [facility] ([facility]) [address] [place], [address], 05/20/2022 06:42:39 05/19/19 23 05/19/2022 COMP. METAB OLIC PANEL (14) A/G ratio 1.4 1.2-2. 2 Not Available [facility] ([facility]) [address] [place], [address], 05/20/2022 06:42:39 05/19/19 23 05/19/2022 COMP. METAB OLIC PANEL (14) bilirubin, total 0.8 mg/dL 0.0-1. 2 Not Available [facility] ([facility]) [address] [place], [address], 05/20/2022 06:42:39 05/19/19 23 05/19/2022 COMP. METAB OLIC PANEL (14) alkaline phosphatase 79 IU/L 44-121 Not Available [facility] ([facility]) [address] [place], [address], 05/20/2022 06:42:39 05/19/19 23 05/19/2022 COMP. METAB OLIC PANEL (14) AST (SGOT) 29 IU/L 0-40 Not Available [facility] ([facility]) [address] [place], [address], 05/20/2022 06:42:39 05/19/19 23 05/19/2022 COMP. METAB OLIC PANEL (14) ALT (SGPT) 28 IU/L 0-44 Not Available [facility] ([facility]) [address] [place], [address], 05/20/2022 06:42:39 05/19/19 23 05/19/2022 IRON AND TIBC iron bind.cap.(TI BC) 281 ug/dL 250-45 0 Not Available [facility] ([facility]) [address] [place], [address], 05/20/2022 06:42:40 05/19/19 23 05/19/2022 IRON AND TIBC UIBC 145 ug/dL 111-34 3 Not Available [facility] ([facility]) [address] [place], [address], 05/20/2022 06:42:40 05/19/19 23 05/19/2022 IRON AND TIBC iron 136 ug/dL 38-169 Not Available [facility] ([facility]) [address] [place], [address], 05/20/2022 06:42:40 05/19/1905/19/2022 IRON AND TIBC iron saturation 48 % 15-55 Not Available [facility] ([facility]) [address] [place], [address], 05/20/2022 06:42:40 05/19/1905/19/2022 PROTH ROMBI N TIME (PT) INR 1.1 0.9-1. 2 Refer ence inter lm is for non-a ntico agula brandie patie nts. Sugge sted INR thera peuti c range for Vitam in K antag onist thera py: Stand giovanny Dose (mode rate inten sity thera peuti c range ): 2.0 - 3.0 Highe r inten sity thera peuti c range 2.5 - 3.5 Not Available [facility] ([facility]) [address] [facility], [place], [address], 05/20/2022 06:42:40 05/19/1905/19/2022 PROTH ROMBI N TIME (PT) prothrombin time 11.0 sec 9.1-12 .0 Not Available [facility] ([facility]) [address] [place], [address], 05/20/2022 06:42:40 05/19/1905/20/2022 AFP, SERUM , TUMOR MARKE R AFP, serum, tumor marker 2.7 NG/mL 0.0-8. 4 Vivian Diagn ostic s Elect vivian milum inesc ence Immun oassa y (ECLI A) Value s obtai nora with diffe rent assay metho ds or kits canno t be used inter garcia eably . Resul ts canno t be inter prete d as absol [place] evide nce of the prese nce or absen ce of chris lemus se. This test is not inter preta ble in pregn ant femal es. Not Available [facility] ([facility]) [address] [place], [address], 05/20/2022 06:42:41 05/19/1905/19/2022 TSH TSH 0.661 uIU/m L 0.450- 4.500 Not Available [facility] ([facility]) [address] [facility], [place], [address], 05/20/2022 06:42:41 05/19/1905/19/2022 PROST ATE-S PECIF IC AG prostate specific Ag 0.5 NG/mL 0.0-4. 0 Vivian ECLIA metho dolog y. Accor ding to the Ameri can [employer] g[employer] iatio n, Serum PSA shoul d decre ase and remai n at undet ectab le level s after radic al prost atect maggie. The AUA defin es bioch emica l recur rence as an initi al PSA value 0.2 ng/mL or great er follo wed by a subse quent confi rmato ry PSA value 0.2 ng/mL or great er. Value s obtai nora with diffe rent assay metho ds or kits canno t be used inter garcia xavier . Resul ts canno t be inter prete d as absol [place] evide nce of the prese nce or absen ce of [place] se. Not Available [facility] ([facility]) [address] [facility], [place], [address], 05/20/2022 06:42:41 05/19/1905/19/2022 LUIS TIN ferritin 296 NG/mL 30-400 Not Available [facility] ([facility]) [address] [facility], [place], [address], 05/20/2022 06:42:42 05/19/1905/19/2022 AHSAN IA, PLASM A ammonia, plasma 42 ug/dL 40-200 Not Available [facility] ([facility]) [address] [facility], [place], [address], 05/20/2022 06:42:42 12/19/1912/19/2022 TSH+F REE T4 TSH 0.555 uIU/m L 0.450- 4.500 Not Available [facility] ([facility]) [address] [place], [address], 12/19/2022 12:12:33 12/19/1912/19/2022 TSH+F REE T4 T4,free(dire ct) 1.29 NG/dL 0.82-1 .77 Not Available [facility] ([facility]) [address] [place], [address], 12/19/2022 12:12:33 12/19/1912/19/2022 CBC WITH DIFFE RENTI AL/PL ATELE T WBC 11.6 x10e3 /uL 3.4-10 .8 above high normal Not Available [facility] ([facility]) [address] [place], [address], 12/19/2022 12:12:33 12/19/1912/19/2022 CBC WITH DIFFE RENTI AL/PL ATELE T RBC 5.45 x10e6 /uL 4.14-5 .80 Not Available [facility] ([facility]) [address] [place], [address], 12/19/2022 12:12:33 12/19/1912/19/2022 CBC WITH DIFFE RENTI AL/PL ATELE T hemoglobin 16.4 g/dL 13.0-1 7.7 Not Available [facility] ([facility]) [address] [place], [address], 12/19/2022 12:12:33 12/19/1912/19/2022 CBC WITH DIFFE RENTI AL/PL ATELE T hematocrit 49.6 % 37.5-5 1.0 Not Available [facility] ([facility]) [address] [place], [address], 12/19/2022 12:12:33 12/19/1912/19/2022 CBC WITH DIFFE RENTI AL/PL ATELE T MCV 91 fL 79-97 Not Available [facility] ([facility]) [address] [facility], [place], [address], 12/19/2022 12:12:33 12/19/1912/19/2022 CBC WITH DIFFE RENTI AL/PL ATELE T MCH 30.1 pg 26.6-3 3.0 Not Available [facility] ([facility]) [address] [facility], [place], [address], 12/19/2022 12:12:33 12/19/1912/19/2022 CBC WITH DIFFE RENTI AL/PL ATELE T MCHC 33.1 g/dL 31.5-3 5.7 Not Available [facility] ([facility]) [address] [facility], [place], [address], 12/19/2022 12:12:33 12/19/1912/19/2022 CBC WITH DIFFE RENTI AL/PL ATELE T RDW 13.9 % 11.6-1 5.4 Not Available [facility] ([facility]) [address] [facility], [place], [address], 12/19/2022 12:12:33 12/19/1912/19/2022 CBC WITH DIFFE RENTI AL/PL ATELE T platelets 248 x10e3 /uL 150-45 0 Not Available [facility] ([facility]) [address] [facility], [place], [address], 12/19/2022 12:12:33 12/19/1912/19/2022 CBC WITH DIFFE RENTI AL/PL ATELE T neutrophils 35 % not estab. Not Available [facility] ([facility]) [address] [place], [address], 12/19/2022 12:12:33 12/19/1912/19/2022 CBC WITH DIFFE RENTI AL/PL ATELE T lymphs 54 % not estab. Not Available [facility] ([facility]) [address] [facility], [place], [address], 12/19/2022 12:12:33 12/19/1912/19/2022 CBC WITH DIFFE RENTI AL/PL ATELE T monocytes 9 % not estab. Not Available [facility] ([facility]) [address] [facility], [place], [address], 12/19/2022 12:12:33 12/19/1912/19/2022 CBC WITH DIFFE RENTI AL/PL ATELE T eos 2 % not estab. Not Available [facility] ([facility]) [address] [facility], [place], [address], 12/19/2022 12:12:33 12/19/1912/19/2022 CBC WITH DIFFE RENTI AL/PL ATELE T basos 0 % not estab. Not Available [facility] ([facility]) [address] [facility], [place], [address], 12/19/2022 12:12:33 12/19/1912/19/2022 CBC WITH DIFFE RENTI AL/PL ATELE T immature cells ACQUISITION SPECIALIST Not Available [facility] ([facility]) [address] [facility], [place], [address], 12/19/2022 12:12:33 12/19/1912/19/2022 CBC WITH DIFFE RENTI AL/PL ATELE T neutrophils (absolute) 4.1 x10e3 /uL 1.4-7. 0 Not Available [facility] ([facility]) [address] [facility], [place], [address], 12/19/2022 12:12:33 12/19/19 23 12/19/2022 CBC WITH DIFFE RENTI AL/PL ATELE T lymphs (absolute) 6.1 x10e3 /uL 0.7-3. 1 above high normal Not Available [facility] ([facility]) [address] [facility], [place], [address], 12/19/2022 12:12:33 12/19/1912/19/2022 CBC WITH DIFFE RENTI AL/PL ATELE T monocytes(ab solute) 1.1 x10e3 /uL 0.1-0. 9 above high normal Not Available [facility] ([facility]) [address] [facility], [place], [address], 12/19/2022 12:12:33 12/19/1912/19/2022 CBC WITH DIFFE RENTI AL/PL ATELE T eos (absolute) 0.2 x10e3 /uL 0.0-0. 4 Not Available [facility] ([facility]) [address] [facility], [place], [address], 12/19/2022 12:12:33 12/19/1912/19/2022 CBC WITH DIFFE RENTI AL/PL ATELE T baso (absolute) 0.1 x10e3 /uL 0.0-0. 2 Not Available [facility] ([facility]) [address] [facility], [place], [address], 12/19/2022 12:12:33 12/19/1912/19/2022 CBC WITH DIFFE RENTI AL/PL ATELE T immature granulocytes 0 % not estab. Not Available [facility] ([facility]) [address] [facility], [place], [address], 12/19/2022 12:12:33 12/19/1912/19/2022 CBC WITH DIFFE RENTI AL/PL ATELE T immature grans (abs) 0.0 x10e3 /uL 0.0-0. 1 Not Available [facility] ([facility]) [address] [facility], [place], [address], 12/19/2022 12:12:33 12/19/19 23 12/19/2022 CBC WITH DIFFE RENTI AL/PL ATELE T NRBC ACQUISITION SPECIALIST Not Available [facility] ([facility]) [address] [facility], [place], [address], 12/19/2022 12:12:33 12/19/19 23 12/19/2022 CBC WITH DIFFE RENTI AL/PL ATELE T hematology comments: ACQUISITION SPECIALIST Not Available [facility] ([facility] [address] [facility], [place], [address], 12/19/2022 12:12:33 12/19/19 23 12/19/2022 COMP. METAB OLIC PANEL (14) glucose 87 mg/dL 70-99 Not Available [facility] ([facility]) [address] [facility], [place], [address], 12/19/2022 12:12:34 12/19/19 23 12/19/2022 COMP. METAB OLIC PANEL (14) BUN 18 mg/dL 6-24 Not Available [facility] ([facility]) [address] [facility], [place], [address], 12/19/2022 12:12:34 12/19/19 23 12/19/2022 COMP. METAB OLIC PANEL (14) creatinine 0.95 mg/dL 0.76-1 .27 Not Available [facility] ([facility]) [address] [facility], [place], [address], 12/19/2022 12:12:34 12/19/19 23 12/19/2022 COMP. METAB OLIC PANEL (14) eGFR 95 mL/mi n/1.7 3 >59 Not Available [facility] ([facility]) [address] [place], [address], 12/19/2022 12:12:34 12/19/19 23 12/19/2022 COMP. METAB OLIC PANEL (14) BUN/creatini ne ratio 19 9-20 Not Available [facility] ([facility]) [address] [facility], [place], [address], 12/19/2022 12:12:34 12/19/19 23 12/19/2022 COMP. METAB OLIC PANEL (14) sodium 141 mmol/ L 134-14 4 Not Available [facility] ([facility]) [address] [facility], [place], [address], 12/19/2022 12:12:34 12/19/1912/19/2022 COMP. METAB OLIC PANEL (14) potassium 4.4 mmol/ L 3.5-5. 2 Not Available [facility] ([facility]) [address] [facility], [place], [address], 12/19/2022 12:12:34 12/19/1912/19/2022 COMP. METAB OLIC PANEL (14) chloride 106 mmol/ L 96-106 Not Available [facility] ([facility]) [address] [facility], [place], [address], 12/19/2022 12:12:34 12/19/1912/19/2022 COMP. METAB OLIC PANEL (14) carbon dioxide, total 23 mmol/ L 20-29 Not Available [facility] ([facility]) [address] [facility], [place], [address], 12/19/2022 12:12:34 12/19/1912/19/2022 COMP. METAB OLIC PANEL (14) calcium 9.6 mg/dL 8.7-10 .2 Not Available [facility] ([facility]) [address] [facility] [place], [address], 12/19/2022 12:12:34 12/19/1912/19/2022 COMP. METAB OLIC PANEL (14) protein, total 6.7 g/dL 6.0-8. 5 Not Available [facility] ([facility]) [address] [facility] [place], [address], 12/19/2022 12:12:34 12/19/19 23 12/19/2022 COMP. METAB OLIC PANEL (14) albumin 3.8 g/dL 3.8-4. 9 Not Available [facility] ([facility]) [address] [facility], [place], [address], 12/19/2022 12:12:34 12/19/19 23 12/19/2022 COMP. METAB OLIC PANEL (14) globulin, total 2.9 g/dL 1.5-4. 5 Not Available [facility] ([facility]) [address] [facility], [place], [address], 12/19/2022 12:12:34 12/19/1912/19/2022 COMP. METAB OLIC PANEL (14) A/G ratio 1.3 1.2-2. 2 Not Available [facility] ([facility]) [address] [facility], [place], [address], 12/19/2022 12:12:34 12/19/19 23 12/19/2022 COMP. METAB OLIC PANEL (14) bilirubin, total 0.9 mg/dL 0.0-1. 2 Not Available [facility] ([facility]) [address] [facility], [place], [address], 12/19/2022 12:12:34 12/19/19 23 12/19/2022 COMP. METAB OLIC PANEL (14) alkaline phosphatase 78 IU/L 44-121 Not Available [facility] ([facility]) [address] [facility], [place], [address], 12/19/2022 12:12:34 12/19/19 23 12/19/2022 COMP. METAB OLIC PANEL (14) AST (SGOT) 28 IU/L 0-40 Not Available [facility] ([facility]) [address] [place], [address], 12/19/2022 12:12:34 10/24/12/19/2022 COMP. METAB OLIC PANEL (14) ALT (SGPT) 36 IU/L 0-44 Not Available [facility] ([facility]) [address] [facility], [place], [address], 12/19/2022 12:12:34 12/19/1912/19/2022 PT AND PTT INR COMMEN T Test not perfo rmed. Speci men recei linda under fille d. Refer ence inter lm is for non-a ntico agula brandie patie nts. Sugge sted INR thera peuti c range for Vitam in K antag onist thera py: Stand giovanny Dose (mode rate inten sity thera peuti c range ): 2.0 - 3.0 Highe r inten sity thera peuti c range 2.5 - 3.5 Not Available [facility] ([facility]) [address] [facility], [place], [address], 12/19/2022 12:12:35 12/19/1912/19/2022 PT AND PTT prothrombin time TNP Test not perfo rmed Not Available [facility] ([facility]) [address] [facility], [place], [address], 12/19/2022 12:12:35 12/19/19 23 12/19/2022 PT AND PTT APTT TNP Test not perfo rmed Not Available [facility] ([facility]) [address] [place], [address], 12/19/2022 12:12:35 12/19/19 23 12/19/2022 AHSAN IA, PLASM A ammonia, plasma 79 ug/dL 40-200 Not Available [facility] ([facility]) [address] [facility], [place], [address], 12/19/2022 12:12:35 12/19/19 23 12/19/2022 SPECI MEN STATU S REPOR T specimen status report COMMEN T Test not perfo rmed. Speci men recei linda under fille d. TEST: [id number] PT and PTT Not Available [facility] ([facility]) [address] [place], [address], 12/19/2022 12:12:36 07/23/19 24 07/24/2023 TSH+F REE T4 TSH 0.237 uIU/m L 0.450- 4.500 below low normal Not Available [facility] ([facility]) [address] [place], [address], 07/24/2023 14:13:06 07/23/19 24 07/24/2023 TSH+F REE T4 T4,free(dire ct) 1.36 NG/dL 0.82-1 .77 Not Available [facility] ([facility]) [address] [facility], [place], [address], 07/24/2023 14:13:06 07/23/19 24 07/24/2023 CBC WITH DIFFE RENTI AL/PL ATELE T WBC 11.3 x10e3 /uL 3.4-10 .8 above high normal Not Available [facility] ([facility]) [address] [place], [address], 07/24/2023 14:13:07 07/23/19 24 07/24/2023 CBC WITH DIFFE RENTI AL/PL ATELE T RBC 5.37 x10e6 /uL 4.14-5 .80 Not Available [facility] ([facility]) [address] [place], [address], 07/24/2023 14:13:07 07/23/19 24 07/24/2023 CBC WITH DIFFE RENTI AL/PL ATELE T hemoglobin 15.8 g/dL 13.0-1 7.7 Not Available [facility] ([facility]) [address] [place], [address], 07/24/2023 14:13:07 07/23/19 24 07/24/2023 CBC WITH DIFFE RENTI AL/PL ATELE T hematocrit 48.4 % 37.5-5 1.0 Not Available [facility] ([facility]) [address] [facility], [place], [address], 07/24/2023 14:13:07 07/23/19 24 07/24/2023 CBC WITH DIFFE RENTI AL/PL ATELE T MCV 90 fL 79-97 Not Available [facility] ([facility]) [address] [facility], [place], [address], 07/24/2023 14:13:07 07/23/19 24 07/24/2023 CBC WITH DIFFE RENTI AL/PL ATELE T MCH 29.4 pg 26.6-3 3.0 Not Available [facility] ([facility]) [address] [facility], [place], [address], 07/24/2023 14:13:07 07/23/19 24 07/24/2023 CBC WITH DIFFE RENTI AL/PL ATELE T MCHC 32.6 g/dL 31.5-3 5.7 Not Available [facility] ([facility]) [address] [place], [address], 07/24/2023 14:13:07 07/23/19 24 07/24/2023 CBC WITH DIFFE RENTI AL/PL ATELE T RDW 14.2 % 11.6-1 5.4 Not Available [facility] ([facility]) [address] [place], [address], 07/24/2023 14:13:07 07/23/19 24 07/24/2023 CBC WITH DIFFE RENTI AL/PL ATELE T platelets 240 x10e3 /uL 150-45 0 Not Available [facility] ([facility]) [address] [place], [address], 07/24/2023 14:13:07 07/23/19 24 07/24/2023 CBC WITH DIFFE RENTI AL/PL ATELE T neutrophils 39 % not estab. Not Available [facility] ([facility]) [address] [facility], [place], [address], 07/24/2023 14:13:07 07/23/19 24 07/24/2023 CBC WITH DIFFE RENTI AL/PL ATELE T lymphs 49 % not estab. Not Available [facility] ([facility]) [address] [facility], [place], [address], 07/24/2023 14:13:07 07/23/19 24 07/24/2023 CBC WITH DIFFE RENTI AL/PL ATELE T monocytes 10 % not estab. Not Available [facility] ([facility]) [address] [facility], [place], [address], 07/24/2023 14:13:07 07/23/19 24 07/24/2023 CBC WITH DIFFE RENTI AL/PL ATELE T eos 2 % not estab. Not Available [facility] ([facility]) [address] [facility], [place], [address], 07/24/2023 14:13:07 07/23/19 24 07/24/2023 CBC WITH DIFFE RENTI AL/PL ATELE T basos 0 % not estab. Not Available [facility] ([facility]) [address] [facility], [place], [address], 07/24/2023 14:13:07 07/23/19 24 07/24/2023 CBC WITH DIFFE RENTI AL/PL ATELE T immature cells ACQUISITION SPECIALIST Not Available [facility] ([facility]) [address] [facility], [place], [address], 07/24/2023 14:13:07 07/23/19 24 07/24/2023 CBC WITH DIFFE RENTI AL/PL ATELE T neutrophils (absolute) 4.4 x10e3 /uL 1.4-7. 0 Not Available [facility] ([facility]) [address] [place], [address], 07/24/2023 14:13:07 07/23/19 24 07/24/2023 CBC WITH DIFFE RENTI AL/PL ATELE T lymphs (absolute) 5.5 x10e3 /uL 0.7-3. 1 above high normal Not Available [facility] ([facility]) [address] [facility], [place], [address], 07/24/2023 14:13:07 07/23/19 24 07/24/2023 CBC WITH DIFFE RENTI AL/PL ATELE T monocytes(ab solute) 1.2 x10e3 /uL 0.1-0. 9 above high normal Not Available [facility] ([facility]) [address] [facility], [place], [address], 07/24/2023 14:13:07 07/23/19 24 07/24/2023 CBC WITH DIFFE RENTI AL/PL ATELE T eos (absolute) 0.2 x10e3 /uL 0.0-0. 4 Not Available [facility] ([facility]) [address] [facility], [place], [address], 07/24/2023 14:13:07 07/23/19 24 07/24/2023 CBC WITH DIFFE RENTI AL/PL ATELE T baso (absolute) 0.1 x10e3 /uL 0.0-0. 2 Not Available [facility] ([facility]) [address] [facility], [place], [address], 07/24/2023 14:13:07 07/23/19 24 07/24/2023 CBC WITH DIFFE RENTI AL/PL ATELE T immature granulocytes 0 % not estab. Not Available [facility] ([facility]) [address] [facility], [place], [address], 07/24/2023 14:13:07 07/23/19 24 07/24/2023 CBC WITH DIFFE RENTI AL/PL ATELE T immature grans (abs) 0.0 x10e3 /uL 0.0-0. 1 Not Available [facility] ([facility]) [address], [place], [address], 07/24/2023 14:13:07 07/23/19 24 07/24/2023 CBC WITH DIFFE RENTI AL/PL ATELE T NRBC ACQUISITION SPECIALIST Not Available [facility] ([facility]) [address], [place], [address], 07/24/2023 14:13:07 07/23/19 24 07/24/2023 CBC WITH DIFFE RENTI AL/PL ATELE T hematology comments: ACQUISITION SPECIALIST Not Available [facility] ([facility]) [address], [place], [address], 07/24/2023 14:13:07 07/23/19 24 07/24/2023 COMP. METAB OLIC PANEL (14) glucose 91 mg/dL 70-99 Not Available [facility] ([facility]) [address], [place], [address], 07/24/2023 14:13:08 07/23/19 24 07/24/2023 COMP. METAB OLIC PANEL (14) BUN 17 mg/dL 6-24 Not Available [facility] ([facility]) [address] [place], [address], 07/24/2023 14:13:08 07/23/19 24 07/24/2023 COMP. METAB OLIC PANEL (14) creatinine 0.85 mg/dL 0.76-1 .27 Not Available [facility] ([facility]) [address] [place], [address], 07/24/2023 14:13:08 07/23/19 24 07/24/2023 COMP. METAB OLIC PANEL (14) eGFR 102 mL/mi n/1.7 3 >59 Not Available [facility] ([facility]) [address], [place], [address], 07/24/2023 14:13:08 07/23/19 24 07/24/2023 COMP. METAB OLIC PANEL (14) BUN/creatini ne ratio 14 11- Not Available [facility] ([facility]) [address] [facility], [place], [address], 07/24/2023 14:13:08 07/23/19 24 07/24/2023 COMP. METAB OLIC PANEL (14) sodium 142 mmol/ L 134-14 4 Not Available [facility] ([facility]) [address] [facility], [place], [address], 07/24/2023 14:13:08 07/23/19 24 07/24/2023 COMP. METAB OLIC PANEL (14) potassium 4.4 mmol/ L 3.5-5. 2 Not Available [facility] ([facility]) [address] [facility], [place], [address], 07/24/2023 14:13:08 07/23/19 24 07/24/2023 COMP. METAB OLIC PANEL (14) chloride 107 mmol/ L 96-106 above high normal Not Available [facility] ([facility]) [address] [facility], [place], [address], 07/24/2023 14:13:08 07/23/19 24 07/24/2023 COMP. METAB OLIC PANEL (14) carbon dioxide, total 22 mmol/ L - Not Available [facility] ([facility]) [address] [facility], [place], [address], 07/24/2023 14:13:08 07/23/19 24 07/24/2023 COMP. METAB OLIC PANEL (14) calcium 9.3 mg/dL 8.7-10 .2 Not Available [facility] ([facility]) [address] [facility], [place], [address], 07/24/2023 14:13:08 07/23/19 24 07/24/2023 COMP. METAB OLIC PANEL (14) protein, total 6.4 g/dL 6.0-8. 5 Not Available [facility] ([facility]) [address] [facility], [place], [address], 07/24/2023 14:13:08 07/23/19 24 07/24/2023 COMP. METAB OLIC PANEL (14) albumin 3.7 g/dL 3.8-4. 9 below low normal Not Available [facility] ([facility]) [address] [facility], [place], [address], 07/24/2023 14:13:08 07/23/19 24 07/24/2023 COMP. METAB OLIC PANEL (14) globulin, total 2.7 g/dL 1.5-4. 5 Not Available [facility] ([facility]) [address] [facility], [place], [address], 07/24/2023 14:13:08 07/23/19 24 07/24/2023 COMP. METAB OLIC PANEL (14) A/G ratio 1.4 1.2-2. 2 Not Available [facility] ([facility]) [address] [place], [address], 07/24/2023 14:13:08 07/23/19 24 07/24/2023 COMP. METAB OLIC PANEL (14) bilirubin, total 0.9 mg/dL 0.0-1. 2 Not Available [facility] ([facility]) [address] [facility], [place], [address], 07/24/2023 14:13:08 07/23/19 24 07/24/2023 COMP. METAB OLIC PANEL (14) alkaline phosphatase 66 IU/L 44-121 Not Available [facility] ([facility]) [address] [facility], [place], [address], 07/24/2023 14:13:08 07/23/19 24 07/24/2023 COMP. METAB OLIC PANEL (14) AST (SGOT) 21 IU/L 0-40 Not Available [facility] ([facility]) [address] [place], [address], 07/24/2023 14:13:08 07/23/19 24 07/24/2023 COMP. METAB OLIC PANEL (14) ALT (SGPT) 22 IU/L 0-44 Not Available [facility] ([facility]) [address] [facility], [place], [address], 07/24/2023 14:13:08 07/23/19 24 07/24/2023 PT AND PTT INR 1.1 0.9-1. 2 Refer ence inter lm is for non-a ntico agula brandie patie nts. Sugge sted INR thera peuti c range for Vitam in K antag onist thera py: Stand giovanny Dose (mode rate inten sity thera peuti c range ): 2.0 - 3.0 Highe r inten sity thera peuti c range 2.5 - 3.5 Not Available [facility] ([facility]) [address] [place], [address], 07/24/2023 14:13:08 07/23/19 24 07/24/2023 PT AND PTT prothrombin time 11.6 sec 9.1-12 .0 Not Available [facility] ([facility]) [address] [place], [address], 07/24/2023 14:13:08 07/23/19 24 07/24/2023 PT AND PTT APTT 28 sec 24-33 This test has not been valid ated for monit oring unfra ction ated hepar in thera py. aPTT- based thera peuti c range s for unfra ction ated hepar in thera py have not been estab roque jane For gener al guide lines on Hepar in monit oring , refer to the [facility] shelbie [facility] Servi lauren. Not Available [facility] ([facility]) [address] [place], [address], 07/24/2023 14:13:08 07/23/19 24 07/24/2023 AHSAN IA, PLASM A ammonia, plasma 66 ug/dL 40-200 Not Available [facility] ([facility]) [address] [facility], [place], [address], 07/24/2023 14:13:09 01/27/20 24 01/28/2024 TSH+F REE T4 TSH 0.412 uIU/m L 0.450- 4.500 below low normal Not Available [facility] ([facility]) [address] [place], [address], 01/28/2024 11:12:11 01/27/20 24 01/28/2024 TSH+F REE T4 T4,free(dire ct) 1.20 NG/dL 0.82-1 .77 normal Not Available [facility] ([facility]) [address] [facility], [place], [address], 01/28/2024 11:12:11 01/27/20 24 01/28/2024 CBC WITH DIFFE RENTI AL/PL ATELE T WBC 11.5 x10e3 /uL 3.4-10 .8 above high normal Eff ectiv e Decem elizabeth 2023 [place] [id number] 5 WBC will be made* * non-o rdera ble as a stand -robyn e order code. Not Available [facility] ([facility]) [address] [facility], [place], [address], 01/28/2024 11:12:11 01/27/20 24 01/28/2024 CBC WITH DIFFE RENTI AL/PL ATELE T RBC 5.77 x10e6 /uL 4.14-5 .80 normal Not Available [facility] ([facility]) [address] [place], [address], 01/28/2024 11:12:11 01/27/20 24 01/28/2024 CBC WITH DIFFE RENTI AL/PL ATELE T hemoglobin 16.6 g/dL 13.0-1 7.7 normal Not Available [facility] ([facility]) [address] [facility], [place], [address], 01/28/2024 11:12:11 01/27/20 24 01/28/2024 CBC WITH DIFFE RENTI AL/PL ATELE T hematocrit 51.6 % 37.5-5 1.0 above high normal Not Available [facility] ([facility]) [address] [facility], [place], [address], 01/28/2024 11:12:11 01/27/20 24 01/28/2024 CBC WITH DIFFE RENTI AL/PL ATELE T MCV 89 fL 79-97 normal Not Available [facility] ([facility]) [address] [facility], [place], [address], 01/28/2024 11:12:11 01/27/20 24 01/28/2024 CBC WITH DIFFE RENTI AL/PL ATELE T MCH 28.8 pg 26.6-3 3.0 normal Not Available [facility] ([facility]) [address] [place], [address], 01/28/2024 11:12:11 01/27/20 24 01/28/2024 CBC WITH DIFFE RENTI AL/PL ATELE T MCHC 32.2 g/dL 31.5-3 5.7 normal Not Available [facility] ([facility]) [address] [facility], [place], [address], 01/28/2024 11:12:11 01/27/20 24 01/28/2024 CBC WITH DIFFE RENTI AL/PL ATELE T RDW 14.2 % 11.6-1 5.4 Not Available [facility] ([facility]) [address] [place], [address], 01/28/2024 11:12:11 01/27/20 24 01/28/2024 CBC WITH DIFFE RENTI AL/PL ATELE T platelets 264 x10e3 /uL 150-45 0 normal Not Available [facility] ([facility]) [address] [facility], [place], [address], 01/28/2024 11:12:11 01/27/20 24 01/28/2024 CBC WITH DIFFE RENTI AL/PL ATELE T neutrophils 38 % not estab. normal Not Available [facility] ([facility]) [address] [facility], [place], [address], 01/28/2024 11:12:11 01/27/20 24 01/28/2024 CBC WITH DIFFE RENTI AL/PL ATELE T lymphs 50 % not estab. normal Not Available [facility] ([facility]) [address] [facility], [place], [address], 01/28/2024 11:12:11 01/27/20 24 01/28/2024 CBC WITH DIFFE RENTI AL/PL ATELE T monocytes 9 % not estab. normal Not Available [facility] ([facility]) [address] [facility], [place], [address], 01/28/2024 11:12:11 01/27/20 24 01/28/2024 CBC WITH DIFFE RENTI AL/PL ATELE T eos 2 % not estab. normal Not Available [facility] ([facility]) [address] [facility], [place], [address], 01/28/2024 11:12:11 01/27/20 24 01/28/2024 CBC WITH DIFFE RENTI AL/PL ATELE T basos 1 % not estab. normal Not Available [facility] ([facility]) [address] [facility], [place], [address], 01/28/2024 11:12:11 01/27/20 24 01/28/2024 CBC WITH DIFFE RENTI AL/PL ATELE T immature cells ACQUISITION SPECIALIST Not Available [facility] ([facility]) [address] [facility], [place], [address], 01/28/2024 11:12:11 01/27/20 24 01/28/2024 CBC WITH DIFFE RENTI AL/PL ATELE T neutrophils (absolute) 4.4 x10e3 /uL 1.4-7. 0 normal Not Available [facility] ([facility]) [address] [facility], [place], [address], 01/28/2024 11:12:11 01/27/20 24 01/28/2024 CBC WITH DIFFE RENTI AL/PL ATELE T lymphs (absolute) 5.7 x10e3 /uL 0.7-3. 1 above high normal Not Available [facility] ([facility]) [address] [facility], [place], [address], 01/28/2024 11:12:11 01/27/20 24 01/28/2024 CBC WITH DIFFE RENTI AL/PL ATELE T monocytes(ab solute) 1.0 x10e3 /uL 0.1-0. 9 above high normal Not Available [facility] ([facility]) [address] [facility], [place], [address], 01/28/2024 11:12:11 01/27/20 24 01/28/2024 CBC WITH DIFFE RENTI AL/PL ATELE T eos (absolute) 0.3 x10e3 /uL 0.0-0. 4 normal Not Available [facility] ([facility]) [address] [facility], [place], [address], 01/28/2024 11:12:11 01/27/20 24 01/28/2024 CBC WITH DIFFE RENTI AL/PL ATELE T baso (absolute) 0.1 x10e3 /uL 0.0-0. 2 normal Not Available [facility] ([facility]) [address] [facility], [place], [address], 01/28/2024 11:12:11 01/27/20 24 01/28/2024 CBC WITH DIFFE RENTI AL/PL ATELE T immature granulocytes 0 % not estab. Not Available [facility] ([facility]) [address] [facility], [place], [address], 01/28/2024 11:12:11 01/27/20 24 01/28/2024 CBC WITH DIFFE RENTI AL/PL ATELE T immature grans (abs) 0.0 x10e3 /uL 0.0-0. 1 Not Available [facility] ([facility]) [address] [facility], [place], [address], 01/28/2024 11:12:11 01/27/20 24 01/28/2024 CBC WITH DIFFE RENTI AL/PL ATELE T NRBC ACQUISITION SPECIALIST Not Available [facility] ([facility]) [address] [facility], [place], [address], 01/28/2024 11:12:11 01/27/20 24 01/28/2024 CBC WITH DIFFE RENTI AL/PL ATELE T hematology comments: ACQUISITION SPECIALIST Not Available [facility] ([facility]) [address] [facility], [place], [address], 01/28/2024 11:12:11 01/27/20 24 01/28/2024 COMP. METAB OLIC PANEL (14) glucose 91 mg/dL 70-99 normal Not Available [facility] ([facility]) [address] [facility], [place], [address], 01/28/2024 11:12:12 01/27/20 24 01/28/2024 COMP. METAB OLIC PANEL (14) BUN 18 mg/dL 6-24 normal Not Available [facility] ([facility]) [address] [facility], [place], [address], 01/28/2024 11:12:12 01/27/20 24 01/28/2024 COMP. METAB OLIC PANEL (14) creatinine 0.93 mg/dL 0.76-1 .27 normal Not Available [facility] ([facility]) [address], [place], [address], 01/28/2024 11:12:12 01/27/20 24 01/28/2024 COMP. METAB OLIC PANEL (14) eGFR 96 mL/mi n/1.7 3 >59 normal Not Available [facility] ([facility]) [address] [place], [address], 01/28/2024 11:12:12 01/27/20 24 01/28/2024 COMP. METAB OLIC PANEL (14) BUN/creatini ne ratio 19 9-20 normal Not Available [facility] ([facility]) [address] [place], [address], 01/28/2024 11:12:12 01/27/20 24 01/28/2024 COMP. METAB OLIC PANEL (14) sodium 141 mmol/ L 134-14 4 normal Not Available [facility] ([facility]) [address], [place], [address], 01/28/2024 11:12:12 01/27/20 24 01/28/2024 COMP. METAB OLIC PANEL (14) potassium 4.3 mmol/ L 3.5-5. 2 normal Not Available [facility] ([place] [facility]) [address] [place], [address], 01/28/2024 11:12:12 01/27/20 24 01/28/2024 COMP. METAB OLIC PANEL (14) chloride 107 mmol/ L 96-106 above high normal Not Available [facility] ([place] [facility]) [address] [facility] [place], [address], 01/28/2024 11:12:12 01/27/20 24 01/28/2024 COMP. METAB OLIC PANEL (14) carbon dioxide, total 21 mmol/ L 20-29 normal Not Available [facility] ([place] [facility]) [address] [facility] [place], [address], 01/28/2024 11:12:12 01/27/20 24 01/28/2024 COMP. METAB OLIC PANEL (14) calcium 9.6 mg/dL 8.7-10 .2 normal Not Available [facility] ([facility]) [address] [place], [address], 01/28/2024 11:12:12 01/27/20 24 01/28/2024 COMP. METAB OLIC PANEL (14) protein, total 6.7 g/dL 6.0-8. 5 normal Not Available [facility] ([facility]) [address] [place], [address], 01/28/2024 11:12:12 01/27/20 24 01/28/2024 COMP. METAB OLIC PANEL (14) albumin 3.9 g/dL 3.8-4. 9 normal Not Available [facility] ([facility]) [address] [place], [address], 01/28/2024 11:12:12 01/27/20 24 01/28/2024 COMP. METAB OLIC PANEL (14) globulin, total 2.8 g/dL 1.5-4. 5 Not Available [facility] ([facility]) [address] [place], [address], 01/28/2024 11:12:12 01/27/20 24 01/28/2024 COMP. METAB OLIC PANEL (14) bilirubin, total 0.9 mg/dL 0.0-1. 2 normal Not Available [facility] ([facility]) [address] [place], [address], 01/28/2024 11:12:12 01/27/20 24 01/28/2024 COMP. METAB OLIC PANEL (14) alkaline phosphatase 67 IU/L 44-121 normal Not Available [facility] ([facility]) [address] [place], [address], 01/28/2024 11:12:12 01/27/20 24 01/28/2024 COMP. METAB OLIC PANEL (14) AST (SGOT) 17 IU/L 0-40 normal Not Available [facility] ([facility]) [address] [facility], [place], [address], 01/28/2024 11:12:12 01/27/20 24 01/28/2024 COMP. METAB OLIC PANEL (14) ALT (SGPT) 15 IU/L 0-44 normal Not Available [facility] ([facility]) [address] [facility], [place], [address], 01/28/2024 11:12:12 01/27/20 24 01/28/2024 PT AND PTT INR 1.1 0.9-1. 2 Refer ence inter lm is for non-a ntico agula brandie patie nts. Sugge sted INR thera peuti c range for Vitam in K antag onist thera py: Stand giovanny Dose (mode rate inten sity thera peuti c range ): 2.0 - 3.0 Highe r inten sity thera peuti c range 2.5 - 3.5 Not Available [facility] ([facility]) [address] [facility], [place], [address], 01/28/2024 11:12:12 01/27/20 24 01/28/2024 PT AND PTT prothrombin time 11.8 sec 9.1-12 .0 normal Not Available [facility] ([facility]) [address] [facility], [place], [address], 01/28/2024 11:12:12 01/27/20 24 01/28/2024 PT AND PTT APTT 29 sec 24-33 normal This test has not been valid ated for monit oring unfra ction ated hepar in thera py. aPTT- based thera peuti c range s for unfra ction ated hepar in thera py have not been estab roque jane For gener al guide lines on Hepar in monit oring , refer to the [facility] Dire tory of Nano aguilar. Not Available [facility] ([facility]) [address] [facility], [place], [address], 01/28/2024 11:12:12 01/27/20 24 01/28/2024 AHSAN IA, PLASM A ammonia, plasma 58 ug/dL 40-200 Not Available [facility] ([facility]) [address] [facility], [place], [address], 01/28/2024 11:12:13 08/20/19 25 08/20/2024 TSH+F REE T4 TSH 0.022 uIU/m L 0.450- 4.500 below low normal Not Available [facility] ([facility]) [address] [facility], [place], [address], 08/20/2024 14:11:16 08/20/19 25 08/20/2024 TSH+F REE T4 T4,free(dire ct) 1.67 NG/dL 0.82-1 .77 normal Not Available [facility] ([facility]) [address] [facility] [place], [address], 08/20/2024 14:11:16 08/20/19 25 08/20/2024 CBC WITH DIFFE RENTI AL/PL ATELE T WBC 11.3 x10e3 /uL 3.4-10 .8 above high normal Not Available [facility] ([facility]) [address] [facility], [place], [address], 08/20/2024 14:11:17 08/20/19 25 08/20/2024 CBC WITH DIFFE RENTI AL/PL ATELE T RBC 5.71 x10e6 /uL 4.14-5 .80 normal Not Available [facility] ([facility]) [address] [facility], [place], [address], 08/20/2024 14:11:17 08/20/19 25 08/20/2024 CBC WITH DIFFE RENTI AL/PL ATELE T hemoglobin 17.3 g/dL 13.0-1 7.7 normal Not Available [facility] ([facility]) [address] [place], [address], 08/20/2024 14:11:17 08/20/1908/20/2024 CBC WITH DIFFE RENTI AL/PL ATELE T hematocrit 52.3 % 37.5-5 1.0 above high normal Not Available [facility] ([facility]) [address] [place], [address], 08/20/2024 14:11:17 08/20/1908/20/2024 CBC WITH DIFFE RENTI AL/PL ATELE T MCV 92 fL 79-97 normal Not Available [facility] ([facility]) [address] [place], [address], 08/20/2024 14:11:17 08/20/1908/20/2024 CBC WITH DIFFE RENTI AL/PL ATELE T MCH 30.3 pg 26.6-3 3.0 normal Not Available [facility] ([facility]) [address] [place], [address], 08/20/2024 14:11:17 08/20/1908/20/2024 CBC WITH DIFFE RENTI AL/PL ATELE T MCHC 33.1 g/dL 31.5-3 5.7 normal Not Available [facility] ([facility]) [address] [place], [address], 08/20/2024 14:11:17 08/20/1908/20/2024 CBC WITH DIFFE RENTI AL/PL ATELE T RDW 14.6 % 11.6-1 5.4 Not Available [facility] ([facility]) [address] [place], [address], 08/20/2024 14:11:17 08/20/1908/20/2024 CBC WITH DIFFE RENTI AL/PL ATELE T platelets 289 x10e3 /uL 150-45 0 normal Not Available [facility] ([facility]) [address] [place], [address], 08/20/2024 14:11:17 08/20/19 25 08/20/2024 CBC WITH DIFFE RENTI AL/PL ATELE T neutrophils 37 % not estab. normal Not Available [facility] ([facility]) [address] [place], [address], 08/20/2024 14:11:17 08/20/19 25 08/20/2024 CBC WITH DIFFE RENTI AL/PL ATELE T lymphs 50 % not estab. normal Not Available [facility] ([facility]) [address] [place], [address], 08/20/2024 14:11:17 08/20/19 25 08/20/2024 CBC WITH DIFFE RENTI AL/PL ATELE T monocytes 10 % not estab. normal Not Available [facility] ([facility]) [address] [place], [address], 08/20/2024 14:11:17 08/20/19 25 08/20/2024 CBC WITH DIFFE RENTI AL/PL ATELE T eos 2 % not estab. normal Not Available [facility] ([facility]) [address] [place], [address], 08/20/2024 14:11:17 08/20/19 25 08/20/2024 CBC WITH DIFFE RENTI AL/PL ATELE T basos 1 % not estab. 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 0 normal Not Available [facility] ([facility]) [address] [place], [address], 08/20/2024 14:11:17 08/20/19 25 08/20/2024 CBC WITH DIFFE RENTI AL/PL ATELE T lymphs (absolute) 5.6 x10e3 /uL 0.7-3. 1 above high normal Not Available [facility] ([facility]) [address] [place], [address], 08/20/2024 14:11:17 08/20/19 25 08/20/2024 CBC WITH DIFFE RENTI AL/PL ATELE T monocytes(ab solute) 1.2 x10e3 /uL 0.1-0. 9 above high normal Not Available [facility] ([facility]) [address] [place], [address], 08/20/2024 14:11:17 08/20/19 25 08/20/2024 CBC WITH DIFFE RENTI AL/PL ATELE T eos (absolute) 0.3 x10e3 /uL 0.0-0. 4 normal Not Available [facility] ([facility]) [address] [place], [address], 08/20/2024 14:11:17 08/20/19 25 08/20/2024 CBC WITH DIFFE RENTI AL/PL ATELE T baso (absolute) 0.1 x10e3 /uL 0.0-0. 2 normal Not Available [facility] ([facility]) [address] [place], [address], 08/20/2024 14:11:17 08/20/19 25 08/20/2024 CBC WITH DIFFE RENTI AL/PL ATELE T immature granulocytes 0 % not estab. Not Available [facility] ([facility]) [address] [facility], [place], [address], 08/20/2024 14:11:17 08/20/19 25 08/20/2024 CBC WITH DIFFE RENTI AL/PL ATELE T immature grans (abs) 0.0 x10e3 /uL 0.0-0. 1 Not Available [facility] ([facility]) [address] [facility], [place], [address], 08/20/2024 14:11:17 08/20/19 25 08/20/2024 CBC WITH DIFFE RENTI AL/PL ATELE T NRBC ACQUISITION SPECIALIST Not Available [facility] ([facility]) [address] [facility], [place], [address], 08/20/2024 14:11:17 08/20/19 25 08/20/2024 CBC WITH DIFFE RENTI AL/PL ATELE T hematology comments: ACQUISITION SPECIALIST Not Available [facility] ([facility]) [address] [facility], [place], [address], 08/20/2024 14:11:17 08/20/19 25 08/20/2024 COMP. METAB OLIC PANEL (14) glucose 87 mg/dL 70-99 normal Not Available [facility] ([facility]) [address] [facility], [place], [address], 08/20/2024 14:11:18 08/20/19 25 08/20/2024 COMP. METAB OLIC PANEL (14) BUN 21 mg/dL 6-24 normal Not Available [facility] ([facility]) [address] [facility], [place], [address], 08/20/2024 14:11:18 08/20/19 25 08/20/2024 COMP. METAB OLIC PANEL (14) creatinine 0.99 mg/dL 0.76-1 .27 normal Not Available [facility] ([facility]) [address] [facility], [place], [address], 08/20/2024 14:11:18 08/20/19 25 08/20/2024 COMP. METAB OLIC PANEL (14) eGFR 89 mL/mi n/1.7 3 >59 normal Not Available [facility] ([facility]) [address] [facility], [place], [address], 08/20/2024 14:11:18 08/20/19 25 08/20/2024 COMP. METAB OLIC PANEL (14) BUN/creatini ne ratio 21 9-20 above high normal Not Available [facility] ([facility]) [address] [facility], [place], [address], 08/20/2024 14:11:18 08/20/19 25 08/20/2024 COMP. METAB OLIC PANEL (14) sodium 141 mmol/ L 134-14 4 normal Not Available [facility] ([facility]) [address] [facility], [place], [address], 08/20/2024 14:11:18 08/20/19 25 08/20/2024 COMP. METAB OLIC PANEL (14) potassium 4.5 mmol/ L 3.5-5. 2 normal Not Available [facility] ([facility]) [address] [facility], [place], [address], 08/20/2024 14:11:18 08/20/19 25 08/20/2024 COMP. METAB OLIC PANEL (14) chloride 105 mmol/ L 96-106 normal Not Available [facility] ([facility]) [address] [facility] [place], [address], 08/20/2024 14:11:18 08/20/19 25 08/20/2024 COMP. METAB OLIC PANEL (14) carbon dioxide, total 21 mmol/ L 20-29 normal Not Available [facility] ([facility]) [address] [place], [address], 08/20/2024 14:11:18 08/20/19 25 08/20/2024 COMP. METAB OLIC PANEL (14) calcium 9.6 mg/dL 8.7-10 .2 normal Not Available [facility] ([facility]) [address] [facility] [place], [address], 08/20/2024 14:11:18 08/20/19 25 08/20/2024 COMP. METAB OLIC PANEL (14) protein, total 6.6 g/dL 6.0-8. 5 normal Not Available [facility] ([facility]) [address] [facility] [place], [address], 08/20/2024 14:11:18 08/20/19 25 08/20/2024 COMP. METAB OLIC PANEL (14) albumin 3.9 g/dL 3.8-4. 9 normal Not Available [facility] ([facility]) [address] [facility] [place], [address], 08/20/2024 14:11:18 08/20/19 25 08/20/2024 COMP. METAB OLIC PANEL (14) globulin, total 2.7 g/dL 1.5-4. 5 Not Available [facility] ([facility]) [address] [facility] [place], [address], 08/20/2024 14:11:18 08/20/19 25 08/20/2024 COMP. METAB OLIC PANEL (14) bilirubin, total 0.7 mg/dL 0.0-1. 2 normal Not Available [facility] ([facility]) [address] [facility] [place], [address], 08/20/2024 14:11:18 08/20/19 25 08/20/2024 COMP. METAB OLIC PANEL (14) alkaline phosphatase 75 IU/L 44-121 normal Not Available [facility] ([facility]) [address] [facility] [place], [address], 08/20/2024 14:11:18 08/20/19 25 08/20/2024 COMP. METAB OLIC PANEL (14) AST (SGOT) 26 IU/L 0-40 normal Not Available [facility] ([facility]) [address] [place], [address], 08/20/2024 14:11:18 08/20/19 25 08/20/2024 COMP. METAB OLIC PANEL (14) ALT (SGPT) 23 IU/L 0-44 normal Not Available [facility] ([facility]) [address] [place], [address], 08/20/2024 14:11:18 08/20/1908/20/2024 PT AND PTT INR 1.1 0.9-1. 2 Refer ence inter lm is for non-a ntico agula brandie patie nts. Sugge sted INR thera peuti c range for Vitam in K antag onist thera py: Stand giovanny Dose (mode rate inten sity thera peuti c range ): 2.0 - 3.0 Highe r inten sity thera peuti c range 2.5 - 3.5 Not Available [facility] ([facility]) [address] [place], [address], 08/20/2024 14:11:18 08/20/19 25 08/20/2024 PT AND PTT prothrombin time 12.2 sec 9.1-12 .0 above high normal Not Available [facility] ([facility]) [address] [place], [address], 08/20/2024 14:11:18 08/20/19 25 08/20/2024 PT AND PTT APTT 28 sec 24-33 normal This test has not been valid ated for monit oring unfra ction ated hepar in thera py. aPTT- based thera peuti c range s for unfra ction ated hepar in thera py have not been estab roque jane For gener al guide lines on Hepar in monit oring , refer to the [facility] Dire tory of Nano aguilar. Not Available [facility] ([facility]) [address] [facility], [place], [address], 08/20/2024 14:11:18 08/20/19 25 08/20/2024 AHSAN IA, PLASM A ammonia, plasma 77 ug/dL 40-200 Not Available [facility] ([facility]) [address] [facility], [place], [address], 08/20/2024 14:11:19 02/15/20 23 02/25/2022 pulse oxime try (PROC ) No observ ation record ed. [email or web address] [address], [place], [address], 07/24/2023 15:25:14 Result Notes None recorded. Problems Name Problem SNOMED Code Status Onset Date Resolution Date Notes Provider Name and Address Organization Details Recorded Time Autoimmu ne hepatiti s [id number] Completed 201507/30/2017 Problem Code: K75.4; Problem Code Type: ICD-10; Octavio Lewis MA [address] [facility] [address], [place], [address] , [facility] 5 09:40:09 Asthenia [id number] Completed 201507/24/2023 Problem Code: R53.1; Problem Code Type: ICD-10; Octavio Lewis MA [address], [place], [address] , [facility] 4 11:34:21 Simple goiter 103626530 Active 2015 Problem Code: 240.0; Problem Code Type: ICD-9; Not Available [facility] 3 17:37:07 Malaise and fatigue 445825330 Completed 201504/26/2022 Problem Code: 780.79; Problem Code Type: ICD-9; Jyothi Rudd MA [address] [place] [address], [place], [address] , [facility] 3 09:06:56 Diffuse goiter 385126871 Active 2015 ProblemC ode: 'E04.0'; ProblemC odeType: 'ICD-10' ; Octavio Lewis MA [address] [facility], [place], [address] , [facility] 5 09:41:17 Body mass index 30+ - obesity 909240072 Active 2015 Problem Code: Z68.36; Problem Code Type: ICD-10; Not Available [facility] 3 17:37:06 Periapic al abscess without sinus tract Completed 201501/13/2016 Problem Code: 522.5; Problem Code Type: ICD-9; Not Available [facility] 3 17:37:07 Body mass index 30+ - obesity 405762681 Completed 201607/30/2017 Problem Code: Z68.38; Problem Code Type: ICD-10; Not Available [facility] 3 17:37:07 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 664857379 Completed 201607/24/2023 Problem Code: N52.2; Problem Code Type: ICD-10; Octavio Lewis MA [address] [address], [place], [address] , [facility] 4 11:33:39 Body mass index 30+ - obesity 144723054 Completed 201604/15/2017 Problem Code: Z68.37; Problem Code Type: ICD-10; Not Available [facility] 3 17:37:06 Impotenc e of organic origin Completed 201607/24/2023 Problem Code: 607.84; Problem Code Type: ICD-9; Octavio Lewis MA [address] [facility], [place], [address] , [facility] 4 11:33:49 Plantar fascial fibromat osis 12193249 Completed 201607/24/2023 Problem Code: 728.71; Problem Code Type: ICD-9; Octavio Lewis MA [address] [place] [address], [place], [address] , [facility] 4 11:33:59 Vascular headache 529260399 Completed 201704/15/2018 Problem Code: G44.1; Problem Code Type: ICD-10; Not Available [facility] 3 17:37:05 Acute ethmoida l sinusiti s 80014623 Completed 201706/14/2017 Problem Code: J01.21; Problem Code Type: ICD-10; Not Available [facility] 3 17:37:05 Headache 51378823 Completed 201704/15/2018 Problem Code: R51; Problem Code Type: ICD-10; Not Available [facility] 3 17:37:06 Hemorrho ids 48186335 Completed 201807/24/2023 Problem Code: K64.8; Problem Code Type: ICD-10; Octavio Lewis MA [address] [address], [place], [address] [place] [address] , [facility] 4 11:33:42 Drug-ind uced hypotens ion 638106973 Completed 201807/24/2023 Problem Code: I95.2; Problem Code Type: ICD-10; Octavio Lewis MA [address] [address], [place], [address] [place] [address] , [facility] 4 11:33:37 Obesity 737798260 Active 2019 ProblemC ode: 'E66.9'; ProblemC odeType: 'ICD-10' ; Sabrina Conner MD [address] [address], [place], [address] [place] [address] , [facility] 5 10:09:53 Influenz a vaccine needed [id number] 06 Completed 201904/26/2022 Problem Code: Z23; Problem Code Type: ICD-10; Jyothi Rudd MA [address] [facility], [place], [address] , [facility] 3 09:06:52 Disorder of thyroid gland 58347743 Active 2021 Problem Code: E07.9; Problem Code Type: ICD-10; Not Available [facility] 3 17:37:05 Hypothyr oidism 81699100 Active 2022 Octavio Lewsi MA [address] [facility] [address], [place], [address] , [facility] 5 09:41:11 Autoimmu ne hepatiti s 800565626 Active 2022 Problem Code: K75.4; Problem Code Type: ICD-10; Octavio Lewis MA [address] [facility], [place], [address] , [facility] 5 09:40:09 Obstruct trell sleep apnea syndrome 61234731 Active 2023 Octavio Lewis MA [address] [address], [place], [address] , [facility] 5 09:41:43 Ventral incision al hernia 477748324 Active 2023 Octavio Lewis MA [address] [address], [place], [address] , [facility] 5 09:41:26 Problem Notes None recorded. Procedures Surgical History Date Name Laterality Status Provider Name and Address Organization Details Recorded Time 06/26/19 25 repair of incarcerated inguinal hernia completed SASCHA [address] [address], [place], [address], [facility] 06/26/2024 10:15:50 01/26/20 22 colonoscopy completed SASCHA Robles [facility], [place], [address], [facility] 11/15/2022 10:19:26 12/24/19 19 epiretinal dissection completed SASCHA Robles [facility], [place], [address], [facility] 11/15/2022 10:17:47 08/16/19 19 hemorrhoidectomy completed SASCHA [address] [address], [place], [address], [facility] 11/15/2022 10:17:22 01/15/20 12 splenectomy completed Octavio Lewis MA [address] [facility] [address], [place], [address], [facility] 11/15/2022 10:16:59 Imaging Results None recorded. Procedure Notes None recorded. Medical Equipment None Reported. Allergies No known drug allergies Medications Name Sig Start Date Stop Date Status Note LastModified by Organization Details LastModified Time prednisone 10 mg tablet 1 1/2 tab qd 02/21 completed Not Available Not Available Not Available doxycycline hyclate 100 mg capsule take 1 capsule (100 mg) by oral route qd 05/22 completed Not Available Not Available Not Available spironolact one 100 mg tablet Take 1/2 tab q day 02/02 completed Not Available Not Available Not Available prednisone 5 mg tablet TAKE ONE TABLET BY MOUTH DAILY active Not Available Not Available No t Available penicillin V potassium 500 mg tablet qid 01/11 completed Not Available Not Available Not Available spironolact one 25 mg tablet Take 1 tablet(s) by mouth daily 11/13 completed Not Available Not Available Not Available mycophenola te mofetil 500 mg tablet 1 po qd active Not Available Not Available Not Available nadolol 20 mg tablet TAKE 1/2 TABLET BY MOUTH DAILY (PT WANTS SPLIT) 05/22 completed Not Available Not Available Not Available Tessalon Perles 100 mg capsule Take 1 capsule(s ) by mouth tid 07/30 completed Not Available Not Available Not Available prednisone 2.5 mg tablet 3 po q am 08/25 completed Not Available Not Available Not Available cephalexin 500 mg capsule 1 cap bid x 7 days 12/04 completed Not Available Not Available Not Available hydrocortis one 2.5 % topical cream Rectal cream insert one applicato r full rectally tid 03/30 completed Not Available Not Available Not Available Entocort EC 3 mg capsule,del ayed,extend ed release Take 1 capsule(s ) by mouth daily 10/19 completed Not Available Not Available Not Available Augmentin 500 mg-125 mg tablet 1 po tid x 10 days 07/30 completed Not Available Not Available Not Available phentermine 37.5 mg capsule Take 1/2 capsule(s ) by mouth daily 08/15 completed Not Available Not Available Not Available spironolact one 50 mg tablet TAKE 2 TABLETS BY MOUTH DAILY (FLUID PILL) active Not Available Not Available No t Available oxycodone 5 mg tablet 1 tab PO TID PRN 08/20 completed Not Available Not Available Not Available Levitra 20 mg tablet Take 1 tablet(s) by mouth once approxima tely 60 minutes before sexual activity. Do not use nitrates (isosorbi de) for 3 days before or after 04/22 completed Not Available Not Available Not Available lactulose 10 gram/15 mL oral solution 2 tablespoo ns by mouth daily prn 05/22 completed Not Available Not Available Not Available ACQUISITION SPECIALIST Thyroid 30 mg tablet TAKE ONE TABLET BY MOUTH DAILY FOR THYROID 2024 active Not Available Not Available Not Avai lable Belviq 10 mg tablet Take 1 tablet(s) by mouth bid 08/03 completed Not Available Not Available Not Available Shingrix (PF) 50 mcg/0.5 mL intramuscul ar suspension, kit inject 0.5 millilite r (50 mcg) by intramusc ular route once 05/22 completed Not Available Not Available Not Available Zepbound 2.5 mg/0.5 mL subcutaneou s solution INJECT 0.5 ML (2.5 MG) UNDER THE SKIN ONCE WEEKLY (0.5ML= 50 UNITS) 2024 active Not Available Not Available Not Avai lable Vitals Date Recorded Body height Respiratory rate Body temperature Body mass index (BMI) Body weight Heart rate Oxygen saturation Systolic And Diastolic Provider Name and Address Organization Details Last Updated DateTime 3 185.42 cm 18 /min 97.8 [degF] 36.7 kg/m2 037153. 68 g 88 /min 96 % 118/82 mm[Hg] [place], [place] [address] [address], [place], [address], [facility] 3 08:10:45 Date Recorded Body height Body mass index (BMI) Body weight Body temperature Heart rate Respiratory rate Oxygen saturation Systolic And Diastolic Provider Name and Address Organization Details Last Updated DateTime 4 185.42 cm 36.9 kg/m2 518630. 86 g 97.7 [degF] 68 /min 18 /min 96 % 122/76 mm[Hg] Octavio Lewis MA [address] [place] [address], [address], [facility] 4 15:11:52 Date Recorded Body height Body mass index (BMI) Body weight Body temperature Heart rate Respiratory rate Oxygen saturation Systolic And Diastolic Provider Name and Address Organization Details Last Updated DateTime 5 185.42 cm 38 kg/m2 779200. 32 g 96.9 [degF] 76 /min 18 /min 95 % 130/76 mm[Hg] Octavio Lewis MA [address] [place] [address], [address], [facility] 5 09:31:42 Date Recorded Body height Body mass index (BMI) Body weight Body temperature Heart rate Respiratory rate Oxygen saturation Systolic And Diastolic Provider Name and Address Organization Details Last Updated DateTime 3 185.42 cm 36.9 kg/m2 029348. 71 g 97.7 [degF] 69 /min 18 /min 95 % 116/80 mm[Hg] Octavio Lewis MA [address] [place] [address], [address], [facility] 3 10:12:54 Date Recorded Body height Provider Name an d Address Organization Details Last Updated DateTime 01/29/2024 185.42 cm Britt Pablo MA [address] [place] [address], [address], [facility] 01/29/2024 14:32:59 Date Recorded Body mass index (BMI) Body weight Body temperature Heart rate Respiratory rate Oxygen saturation Systolic And Diastolic Provider Name and Address Organization Details Last Updated DateTime 4 38.3 kg/m2 489889. 22 g 97.4 [degF] 87 /min 18 /min 96 % 132/84 mm[Hg] Octavio Lewis MA [address] [facility], [place], [address] 14:48:19 Social History Question Answer Notes LastModified by Organizat ion Details LastModified Time Tobacco Smoking Status Never Smoker Jyothi Rudd [place] [address] [facility], [place], [address], [facility] 05/22/2022 08:08:29 Do You Have An Advance Directive? Yes Information not available 12/25/2022 What Is Your Advocate's Name? Annie Parker Information not available 12/25/2022 What Is Your Relation To The Advocate? Spouse Information not available 12/25/2022 Is Blood Transfusion Acceptable In An Emergency? Yes Information not available 12/25/2022 What Is Your Level Of Caffeine Consumption? Moderate Information not available 12/25/2022 What Is Your Code Status? Full Code Information not available 12/25/2022 Do You Have A Directive To Physicians? Yes Information not available 12/25/2022 Do You Have A Medical Power Of Laborer/Key Man? Yes Information not available 12/25/2022 What Was The Date Of Your Most Recent Tobacco Screening? 08/20/2024 Information not available 08/20/2024 Do You Have An Out Of Hospital DNR? No Information not available 12/25/2022 Do You Have A Patient Advocate? Yes Information not available 12/25/2022 Has Tobacco Cessation Counseling Been Provided? No Information not available 01/29/2024 Sex: Unknown Functional Status Question Answer Note LastModified by Organizat ion Details LastModified Time Do you use any illicit or recreational drugs? No Information not available 12/25/2022 Do you or have you ever used any other forms of tobacco or nicotine? No Information not available 07/24/2023 What is your level of alcohol consumption? None [email or web address] Information not available 05/22/2022 Mental Status None recorded. Family History Relationship Description Onset Age of this Age Resolved Age Notes LastModified by Organization Details LastModified Time Mother Myocardial infarction Not available 11/15 10:14:53 Mother Congenital insufficienc y of mitral valve Not available 2022 10:15:15 Mother Malignant neoplasm of breast Not available 2022 10:15:35 Mother Cerebrovascu lar accident Not available 10:15:55 Brother Seizure disorder Not available 2022 10:16:05 Father Type 2 diabetes mellitus Not available 2022 10:16:15 Notes:Positive for Myocardia l Infarction ( mother ) and mitral valve insufficiency- mother . Positive for Breast Cancer ( mother ) . Negative for Colon Cancer ( mat. GF ) . Positive for Cerebrovascular Accident ( mother ) and Seizure Disorder ( brother ) . Positive for Type 2 Diabetes ( father ) . Medical History Condition Response Obesity Y Hypothyroidism Y Immunizations Vaccine Type Date Status Note Provider Nam e and Address Organization Details Recorded Time Influenza, split virus, quadrivalent, PF 3 completed Octavio Lewis MA [address] [place] [address], [place], [address], [facility] 12/25/2022 10:47:01 COVID-19, mRNA, LNP-S, PF, 100 mcg/0.5mL dose or 50 mcg/0.25mL dose 1 completed Octavio Lewis MA [address] [facility] 1, [place], [address], [facility] 12/25/2022 09:59:08 Influenza, split virus, quadrivalent, preservative 7 completed Not Available [facility] 04/16/2022 17:40:40 Influenza, split virus, quadrivalent, preservative 6 completed Octavio Lewis MA [address], [place], [address], [facility] 12/25/2022 09:59:08 Influenza, recombinant, quadrivalent, PF 8 completed Octavio Lewis MA [address], [place], [address], [facility] 12/25/2022 09:59:08 COVID-19, mRNA, LNP-S, PF, 100 mcg/0.5mL dose or 50 mcg/0.25mL dose 1 completed Octavio Lewis MA [address] [place] [address], [place], [address], [facility] 12/25/2022 09:59:08 COVID-19, mRNA, LNP-S, PF, 100 mcg/0.5mL dose or 50 mcg/0.25mL dose 1 completed Octavio Lewis MA [address] [place] [address], [place], [address] [place] [address], [facility] 12/25/2022 09:59:08 Influenza, recombinant, quadrivalent, PF 0 completed Not Available [facility] 04/16/2022 17:40:42 COVID-19, mRNA, LNP-S, PF, 100 mcg/0.5mL dose or 50 mcg/0.25mL dose 1 completed Octavio Lewis MA [address] [place] [address], [place], [place], [address] [place] [address], [facility] 12/25/2022 09:59:08 Influenza, recombinant, trivalent, PF 4 completed Octavio Lewis MA [address] [place] [address], [place], [address] [place] [address], [facility] 01/29/2024 15:38:32 Past Encounters Encounter ID Performer Location Encounter Start Date Encounter Closed Date Diagnosis/Indication Diagnosis SNOMED-CT Code Diagnosis ICD10 Code Diagnosis IMO Codes Diagnosis Note [id number] Sabrina Conner MD Main Office [address] [place] [address] 05/22/2022 07:59:48 05/22/2022 08:43:55 Diffuse goiter 641845039 E04.0 Stable. On thyroid replacemen t. Drug-induc ed hypotension 154666157 I95.2 nadolol stopped, no varices. Bp better. Hypothyroidism 70245736 E03.9 No change in meds. Autoimmune hepatitis 408 896401 K75.4 Pt is doing well with meds. No change in therapy. See back for f/u in 6 months with labs. [id number] Sabrina Conner MD Main Office [address] [place] [address] 6 12/25/2022 09:56:49 12/25/2022 10:50:46 Autoimmune hepatitis 846447159 K75.4 Pt is doing well with meds. No change in therapy. See back for f/u in 6 months with labs. Diffuse goiter 677476788 E04.0 Stable. On thyroid replacemen t. Drug-induc ed hypotension 906297101 I95.2 nadolol stopped, no varices. Bp better. Influenza vaccine needed 2649546951 106 Z23 [id number] Sabrina Conner MD Main Office [address] [place] [address] 6 07/24/2023 14:59:17 07/24/2023 15:49:31 Autoimmune hepatitis 993211727 K75.4 Pt is doing well with meds. No change in therapy. See back for f/u in 6 months with labs. Diffuse goiter 720344948 E04.0 Stable. On thyroid replacemen t. Hypothyroidism 12923597 E03.9 No change in meds. Obstructiv e sleep apnea syndrome 50615480 G47.33 Pt is wearing cpap. Tolerating it better. Still tired some. Ventral in cisional hernia 969074722 K43.2 incisional hernia, getting bigger, tender and makes him nauseated when pushed on. [id number] Sabrina Conner MD Main Office [address] [place], [place] [id number] 01/29/2024 14:24:16 01/29/2024 15:40:58 Autoimmune hepatitis 912827118 K75.4 Pt is doing well with meds. No change in therapy. See back for f/u in 6 months with labs. Pt is doing well. Diffuse goiter 457747737 E04.0 Stable. On thyroid replacemen t. Free T 4 good. No diarrhea or palpitatio ns. Hypothyroidism 53721333 E03.9 No change in meds. Ventral in cisional hernia 863522148 K43.2 incisional hernia, getting bigger, tender and makes him nauseated when pushed on. He is seeing surgeon. Waiting on clearance from Dr. Rees. Administra tion of influenza vaccine 79933069 Z23 Pt given vaccine. Can take tylenol 500 mg po q 6 hours as needed for fever, aches or pains. Informatio n sheet provided. Obstructiv e sleep apnea syndrome 52374856 G47.33 Pt is wearing cpap. Tolerating it better. Still tired some. [id number] Sabrina Conner MD Main Office [address] [place] [phone] 08/20/2024 09:09:46 08/20/2024 10:18:25 Autoimmune hepatitis 097036817 K75.4 [id number] Pt is doing well with meds. No change in therapy. See back for f/u in 6 months with labs. Pt is doing well. On spironolac tone, mycophenol ate and prednisone . Pt wbc, slightly high, but due to the prednisone . Hypothyroidism 57331055 E03.9 07866320 No change in meds. Diffuse goiter 452377088 E04.0 505962 Stable. On thyroid replacemen t. Free T 4 good. No diarrhea or palpitatio ns. Ventral in cisional hernia 689222159 K43.2 88417087 s/p repair. Obstructiv e sleep apnea syndrome 88346236 G47.33 07259 Pt is wearing cpap. Tolerating it better. Still tired some. Obesity 473763543 E66.9 64226392 will try zepbound through naty direct Health Concerns Section Related Observation LastModified by Organization Detai ls LastModified Time None Recorded Concern Status LastModified by Organization Details LastModified Time None Recorded Advance Directives Directive Y: Payers Insurance Date Sequence Insurance Name Policy Number Policy Piña Covered Member ID Piña Member ID Guarantor Name 11/16/2024 1 [place] [id number] 1 Rolly Parker [id number] Rolly Parker Notes Date Note Type Note Provider Name and Address Organization Details Recorded Time 05/22/2022 text/html Pt being seen today for f/u. Has autoimmune hepatitis. He is on mycophenolate, prednisone and sprinolactone. Doing well. Had labs done and no issues. Tolerating meds with out difficulty. Seeing GI, scoped in Jan. Getting liver u/s of liver this week. He was able to stop nadolol. Pt had egd and no varices. Sabrina Conner MD [address] [place] [address], [place], [address], [facility] 05/22/2022 08:32:55 12/25/2022 text/html Pt being seen today for f/u. Has autoimmune hepatitis. He is on mycophenolate, prednisone and spironolactone. Doing well. Had labs done and no issues. Tolerating meds with out difficulty. Seeing GI, had scope last Jan. Pt had egd and no varices. He has daytime sleepiness. says he snores a lot and stops breathing. Sabrina Conner MD [address] [place] [address], [place], [address], [facility] 12/25/2022 10:36:30 07/24/2023 text/html Pt being seen today for f/u. Has autoimmune hepatitis. He is on mycophenolate, prednisone and spironolactone. Doing well. Had labs done and no issues. Tolerating meds with out difficulty. Seeing GI, had scope last Jan. Pt had egd and no varices. He has daytime sleepiness. He is now on CPAP. Sabrina Conner MD [address] [place] [address], [place], [address], [facility] 07/24/2023 15:41:01 01/29/2024 text/html Pt being seen today for f/u. Has autoimmune hepatitis. He is on mycophenolate, prednisone and spironolactone. Doing well. Had labs done and no issues. Tolerating meds with out difficulty. . Pt had egd and no varices. Seeing Dr. José Miguel Rees Feb 10.He has daytime sleepiness. He is now on CPAP. He wants to try to lose weight. We discussed semiglutide. Sabrina Conner MD [address] [place] [address], [place], [address], [facility] 01/29/2024 15:17:39 08/20/2024 text/html Pt being seen today for f/u. Has autoimmune hepatitis. He is on mycophenolate, prednisone and spironolactone. Doing well. Had labs done and no issues. Tolerating meds with out difficulty. . Pt had egd and no varices. Seeing Dr. José Miguel Rees Feb 10.He has daytime sleepiness. He is now on CPAP. He wants to try to lose weight. We discussed semaglutide. Sabrina Conner MD [address] [place] [address], [place], [address], [facility] 08/20/2024 10:15:07
--- NOTE | 2025-02-23 09:15 | US_ITS ---
FINAL REPORT TECHNIQUE: Sonographic images of the right upper quadrant were obtained. CLINICAL HISTORY: Cirrhosis-HCC (hepatocellular carcinoma) screening COMPARISON: None FINDINGS: PANCREAS: Unremarkable. LIVER: Coarsened in echotexture and nodular in contour. No focal hepatic lesion. The portal vein is patent. No intrahepatic biliary ductal dilatation. GALLBLADDER: Gallstones are noted. No gallbladder wall thickening or pericholecystic fluid. COMMON DUCT: 2 mm. Normal for age. RIGHT KIDNEY: The right kidney measures 13.2 cm. There is a 15 mm cyst. There is no hydronephrosis. FREE FLUID: None. IMPRESSION: Nodular liver consistent with cirrhosis. Gallstones. Reviewed, Interpreted and Dictated by Maryann Eastman MD Transcribed by Rosalee Brandt Authenticated and [facility]
== END 2025-02-23 23:59 | disposition home or self-care (01) ==
LOC: RAD 08:59
PROVIDERS: PCP Nurse Practitioner; Visit Provider Internal Medicine Gastroenterology
DX: K74.60 Unspecified cirrhosis of liver (principal); K75.4 Autoimmune hepatitis; N28.1 Cyst of kidney, acquired; K80.20 Calculus of gallbladder without cholecystitis without obstruction
CPT/HCPCS: 76705